=== PATIENT | male | born 1950 | race Caucasian/White ===

== ENCOUNTER 2024-01-20 17:59 | Observation (INO) ==
--- NOTE | 2024-01-20 18:06 | ED Triage Note ---
Date of Service January 20, 2024 Provider in Triage Author: Jeffrey Walters History of Present Illness This patient was briefly evaluated while in triage. An abbreviated physical exam was performed. This patient is a 73-year-old Male who presents to the ED for evaluation seen overnight for weakness, diagnosed with "pneumonia and rhinovirus" sent by "cancer doctors to be admitted for IV antibiotics" Physical Exam GENERAL: NAD CARDIOVASCULAR: RRR RESPIRATORY: CTA ABDOMEN: BS x 4. Nontender to palpation. Initial orders for labs and / or imaging were placed and patient was placed in the waiting area until a bed is available. Please see further documentation for the full ED course.
[2024-01-20 19:07] LABS: Alanine Aminotransferase 9 U/L (7-52); Albumin Globulin Ratio 1.5 (0.9-2); Albumin Level 3.7 gm/dl (3.4-5.0); Alkaline Phosphatase 94 U/L (34-104); BUN Creatinine Ratio 13.9 (10-20); Bilirubin,Total 0.5 mg/dl (0.2-1.0); Blood Urea Nitrogen 11 mg/dl (6-23); Calcium 8.1 mg/dl (8.6-10.3); Carbon Dioxide 24 mmol/L (21-32); Chloride 103 mmol/L (98-107); Globulin 2.5 gm/dl (2.5-4.0); Glucose 106 mg/dl (70-99(Fasting)); Total Protein 6.2 gm/dl (6.0-8.3)
[2024-01-20 19:14] LABS: ALC (manual) 0.94 K/uL (1.2-3.4); ANC (manual) 7.59 K/uL (1.4-6.5); Basophils # (manual) 0.09 K/uL (0-0.2); Basophils % (manual) 1 %; Dohle Bodies 1+; Hematocrit (blood only) 30.7 % (42.0-52.0); Hemoglobin 10.2 g/dl (14.0-18.0); Lymphocytes # (manual) 0.94 K/uL (1.2-3.4); Lymphocytes % (manual) 10 %; Mean Corpuscular Hemoglobin 32.7 pg (25.0-34.0); Mean Corpuscular Hgb Conc 33.2 g/dL (32.0-36.0); Mean Corpuscular Volume 98.4 fL (80.0-100.0); Monocytes # (manual) 0.66 K/uL (0.11-0.59); Monocytes % (manual) 7 %; Myelocytes # (manual) 0.09 K/uL (0-0); Myelocytes % (manual) 1 %; Neutrophils # (manual) 7.59 K/uL (1.40-6.50); Neutrophils % (manual) 81 %; Nucleated RBC # (auto) 0.02 K/uL (0.00-0.12); Nucleated RBC % (auto) 0.2 %; Platelet Count 101 K/uL (130-400); RDW Coefficient of Variation 13.5 % (11.5-14.5); RDW Standard Deviation 48.8 fL (36.4-46.3); Red Blood Count 3.12 M/uL (4.70-6.10); Toxic Granulation 2+; Toxic Vacuolation 2+; White Blood Count 9.37 K/ul (4.8-10.8)
[2024-01-20 19:57] LABS: Appearance Urine Clear (Clear); Bacteria Urine Automated None Seen (None Seen); Bilirubin Urine Negative (Negative); Blood Urine Negative (Negative); Cast Urine Automated 0-2 /lpf (0-2); Color Urine Yellow; Epithelial Cell Urine Auto 0-2 /hpf (0-2); Glucose Urine UA Negative (Negative); Ketones Urine 1+ (Negative); Leukocyte Esterase Urine Negative (Negative); Nitrite Urine Negative (Negative); Protein Urine Trace (Negative); RBC Urine Automated 0-2 /hpf (0-2); Specific Gravity Urine 1.018 (1.000-1.030); Urobilinogen Urine Negative (Negative); WBC Urine Automated 0-5 /hpf (0-5); pH Urine 6.5 (4.5-7.5)
--- NOTE | 2024-01-20 20:12 | XRay Report ---
EXAM: XR chest 2V PA/lateral CLINICAL HISTORY: DYSPNEA HKS/KFK TECHNIQUE: X-ray images of the chest were obtained in posteroanterior (PA) and lateral projections. COMPARISON: Prior PET CT dated 12/25/2023 was reviewed. FINDINGS: Pulmonary Parenchyma: Prominent bilateral broncho vascular markings. No evidence of consolidation, collapse, or focal opacities. No pulmonary nodules were identified. No evidence of pleural effusion or pleural thickening. Heart and Mediastinum: Heart size and shape are normal. No mediastinal widening or masses. No hilar or mediastinal lymphadenopathy. Bony Thorax: Multiple sclerotic osseous lesions are seen at the dorsal spine. Soft Tissues: Soft tissues overlying the chest wall are unremarkable. IMPRESSION: 1. Prominent bilateral broncho vascular markings. likely congestion. 2. Multiple sclerotic osseous lesions are seen at the dorsal spine. likely metastatic. Further, workup is advised. Electronically signed by Shayla Perry 01-20-2024 8:12 PM
[2024-01-20] MEDS: DOXYCYCLINE HYCLATE 100 MG in DEXTROSE 5% MINI-B 100 ML IV STA (21:08)
[2024-01-20 21:38] LABS: Magnesium 1.7 mg/dl (1.7-2.4); Potassium 3.4 mmol/L (3.5-5.1)
--- NOTE | 2024-01-20 21:43 | Emergency Department Note ---
Impression & Plan Acute dehydration, Pneumonia, Rhinovirus infection ED Provider Note HISTORY OF PRESENT ILLNESS: Patient is a 73-year-old male presenting with poor oral intake. Patient reports he has not been feeling well for the last few days. He was seen here yesterday and diagnosed with rhinovirus and pneumonia. He was recommended to be admitted but the patient declined. He reports that his cancer doctor recommended he represent to the emergency department for IV antibiotics and IV fluids and admission. Patient is currently undergoing cancer treatment and last received chemo 1 week ago. Denies any fevers. Reports feeling nauseous and not really having much of an appetite. Denies any dysuria or hematuria. Denies any abdominal pain. Denies any chest pain or significant shortness of breath. He reports a chronic cough. ROS: as above PHYSICAL EXAM: Constitutional: Patient appears in no acute distress. HENT: Head: Normocephalic and atraumatic. Eyes: EOMI, PERRL Mouth/Throat: Mucous membranes dry. Neck: Trachea midline. Neck supple. Cardiovascular: RRR, No murmurs, rubs or gallops. Intact distal pulses. Pulmonary/Chest: No respiratory distress. Breath sounds clear and equal bilaterally. No wheezes or rales. No chest wall tenderness to palpation. Abdominal: Abdomen soft, no tenderness, rebound or guarding. Musculoskeletal: No edema, tenderness or deformity noted. Skin: Warm and dry. No rash, erythema, pallor or cyanosis Psychiatric: Appropriate mood and affect for situation. Neurological: Alert and keenly responsive. CN II-XII grossly intact, moving all extremities equally and fully. MDM: - Vitals signs stable - History obtained via patient. History as above. - Chronic conditions affecting care: prostate cancer with bone metastases; CAD; HLD - Differential diagnoses include, but are not limited to: dehydration; electrolyte abnormality; ACS; pneumonia; UTI; viral syndrome - Order placed for continuous cardiac monitoring. At this time, monitor showed rate of 87 bpm with normal sinus rhythm, per my interpretation. - External medical records reviewed. Workup from yesterday's ER visit was reviewed. Patient's viral respiratory panel was positive for rhinovirus/enterovirus infection. His chest x-ray was read as concern for potential pneumonia. - EKG interpreted by myself showed normal sinus rhythm. Rate 88 bpm. QT 380. No acute ischemic changes. - Laboratory workup interpreted by myself showed normal WBC; hypokalemia (K 3.4); normal magnesium; normal lactate - CXR negative for pneumonia, per my interpretation - UA negative for infection. Noted to have some ketonuria. - Patient reportedly has not been tolerating oral intake very well. Blood cultures were obtained. - Discussion was had with pillowcase cutter about patient's case and need for admission - Hospitalist, Dr. Ca, consulted for admission - Patient admitted to [facility] for further evaluation and management. ASSESSMENT AND PLAN: Diagnosis: pneumonia; rhinovirus; acute dehydration Plan: admit Past Med/Surg History Problem List (Updated 01/20/24 @ 21:44 by Gerri Mata MD) Rhinovirus infection (Acute) Pneumonia (Acute) Acute dehydration (Acute) Hypomagnesemia (Acute) Pancytopenia (Acute) Fall (Acute) Head injury (Acute) Generalized weakness (Acute) Pneumonia (Acute) Lower urinary tract symptoms (LUTS) GARVIN (dyspnea on exertion) Neoplasm of prostate, distant metastasis staging category M1b: metastasis to bone (Chronic) Fatigue SVT (supraventricular tachycardia) (Acute) Weakness (Acute) Dizziness (Acute) Carotid artery, internal, occlusion (Acute) Ureterolithiasis Scrotal pain Prostate cancer Urinary frequency Dyslipidemia Premature supraventricular beats Arrhythmia Concern for a.fib during preop evaluation prior to planned EGD/colonoscopy 06/2022 at [facility]. Subsequently seen by OR cardio 07/05/22, low suspicion for a. fib > 14 playground monitor recommended/noted no evidence of a. fib Encounter for pre-operative examination Lumbar spondylosis Globus sensation Change in bowel habits Depression History of back surgery L2-5 fusion Atherosclerosis of arteries Nocturia Eczema Diarrhea Constipation Dysphagia Medical History GARVIN (dyspnea on exertion) Depression Hx of cardiac arrhythmia Concern for a.fib during preop evaluation prior to planned EGD/colonoscopy 06/2022 at [facility]. Subsequently seen by OR cardio 07/05/22, low suspicion for a. fib > 14 playground monitor recommended/noted no evidence of a. fib Occasional tremors COPD (chronic obstructive pulmonary disease) Occlusion of right internal carotid artery HTN (hypertension) Anxiety Acid reflux Seasonal allergies Kidney stone hx Poor historian Prostate cancer metastatic to bone 05/2022 prostate- oral denies any radiation/chemo Osteoarthritis Chronic back pain Spinal stenosis Globus sensation Pt denies Surgical History History of lumbar fusion H/O cardiac radiofrequency ablation For SVT on 12/11/22 - Follows [facility] H/O cystoscopy Cystoscopy, Left Ureteronephroscopy, Laser destruction, Basket Extraction of the Stone, Insertion Stent Catheter History of colonoscopy History of appendectomy Family History Sister Medical history unknown Pt had 8 sisters - 1 in MVA and 7 still living - none with cancer Mother , in her 80s Dementia Diabetes Myocardial infarction Hypertension Father , in his 80s Cancer Pt uncertain of type Brother No problems noted. Brother No problems noted. Brother No problems noted. Brother No problems noted. Brother No problems noted. Son No problems noted. Son No problems noted. Son No problems noted. Son No problems noted. Denies family history of Crohn's disease Colorectal cancer Ulcerative colitis Social History Smoking Status: Never smoker Tobacco Type: Cigarettes Age Started Using Tobacco: 19; Age Quit Using Tobacco: 55; Cigarettes Per Day: 2 PPD when smoking; Second Hand Exposure: No; Do You Dip or Chew Tobacco: No; Hx Alcohol Use: No Hx Substance Use: No Preferred Language: Turkish Communication Ability: Effective Visual Impairment: No Limitations Hearing Ability: Normal Space Engineer Required: No Beliefs That Will Affect Care: None marital status: Current Living Situation: Spouse current occupational status: retired 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 How many Children do You have: 4 Feels Safe at Home: Yes Diet: regular caffeine: Yes (1 "big cup" per day) during the past year weight has: remained stable Assistive Devices: Glasses Allergies Allergies Allergy/AdvReac Type Severity Reaction Status Date / Time No Known Allergies Allergy Verified 11/29/23 08:04 Home Meds Home Medications Medication Instructions Recorded Confirmed ascorbic acid (vitamin C) 1,000 mg 1 g PO BID 12/10/22 01/20/24 tablet (Vitamin C) atorvastatin 40 mg tablet 40 mg PO QPM 12/10/22 01/20/24 budesonide 160 mcg-glycopyr 9 2 inh inhalation DAILY 12/10/22 01/20/24 mcg-formot 4.8 mcg/actuation HFA inhaler (Breztri Aerosphere) bupropion HCl 300 mg 24 hr tablet, 300 mg PO QAM 12/10/22 01/20/24 extended release (Wellbutrin XL) calcium carbonate 600 mg PO QAM 12/10/22 01/20/24 fexofenadine 180 mg tablet 180 mg PO DAILY PRN Allergic 12/10/22 01/20/24 Symptoms multivitamin 1 tab PO QAM 12/10/22 01/20/24 omeprazole 40 mg capsule,delayed 40 mg PO QAM 12/10/22 01/20/24 release potassium 99 mg tablet 99 mg PO QAM 12/10/22 01/20/24 propranolol 20 mg tablet 20 mg PO BID 12/10/22 01/20/24 terazosin 10 mg capsule 10 mg PO HS 12/10/22 01/20/24 acetaminophen 325 mg capsule 650 mg PO Q8H PRN Pain 03/19/23 01/20/24 (Tylenol) cholecalciferol (vitamin D3) 25 25 mcg PO QAM 03/19/23 01/20/24 mcg (1,000 unit) capsule clotrimazole-betamethasone 1 1 applic topical DAILY PRN Rash 03/19/23 01/20/24 %-0.05 % topical cream cyanocobalamin (vitamin B-12) 2,000 mcg PO DAILY 03/19/23 01/20/24 1,000 mcg capsule enzalutamide 40 mg capsule (Xtandi) 160 mg PO QAM 03/19/23 01/20/24 hydroxyzine HCl 25 mg tablet 50 mg PO HS 03/19/23 01/20/24 leuprolide (3 month) 22.5 mg (3 22.5 mg IM .Q3 months 03/19/23 01/20/24 month) intramuscular syringe kit (Lupron Depot) magnesium 250 mg tablet 250 mg PO HS 03/19/23 01/20/24 nystatin 100,000 unit/gram topical 1 applic topical BID PRN Itchiness 03/19/23 01/20/24 powder furosemide 20 mg tablet (Lasix) 20 mg PO QAM 05/21/23 01/20/24 sertraline 100 mg tablet (Zoloft) 100 mg PO QPM 07/02/23 01/20/24 Complete Prostate Health 1 tab PO QAM 11/29/23 01/20/24 oxycodone 5 mg capsule 5 mg PO QID PRN Pain 11/29/23 01/20/24 tamsulosin 0.4 mg capsule (Flomax) 0.4 mg PO QAM 11/29/23 01/20/24 Previous Rx's Medication Instructions Recorded peg 3350-sod [id number] See Rx Instructions PO .COMPLEX #2 01/13/24 178.7-7.3-0.5-1.12-0.9 gram oral mL soln (Suflave) cefdinir 300 mg capsule 300 mg PO BID 10 days #20 caps 01/19/24 doxycycline hyclate 100 mg tablet 100 mg PO BID 10 days #20 tabs 01/19/24 Results & Data (ED) Vital Signs Vital Signs - 24 hr 01/20/24 18:00 01/20/24 20:09 01/20/24 20:13 Temperature 36.6 C Temperature Source Temporal Artery Scan Pulse Rate 89 90 Pulse Rate [Apical] 87 Respiratory Rate 18 22 Respiratory Effort / Characteristics Respiratory Depth Respiratory Pattern Blood Pressure 105/62 Blood Pressure [Right Arm] 143/81 H Blood Pressure Mean 76 Blood Pressure Mean [Right Arm] 101 Pulse Oximetry 96 99 Oxygen Delivery Method Room Air Sepsis Recent Fever Within 48 Hours No Sepsis New/Unexplained Change in Mental Status N/A Sepsis Action Taken by Nursing No Action Required 01/20/24 21:06 Temperature Temperature Source Pulse Rate Pulse Rate [Apical] 87 Respiratory Rate 20 Respiratory Effort / Characteristics Non-Labored Spontaneous Respiratory Depth Normal Respiratory Pattern Regular Blood Pressure Blood Pressure [Right Arm] 122/89 Blood Pressure Mean Blood Pressure Mean [Right Arm] 100 Pulse Oximetry 98 Oxygen Delivery Method Room Air Sepsis Recent Fever Within 48 Hours Sepsis New/Unexplained Change in Mental Status Sepsis Action Taken by Nursing Laboratory Data 01/20/24 18:18 01/20/24 20:48 Lab Results 01/20/24 01/20/24 01/20/24 Range/Units 18:18 19:40 20:44 WBC 9.37 (4.8-10.8) K/ul RBC 3.12 L (4.70-6.10) M/uL Hgb 10.2 L (14.0-18.0) g/dl Hct 30.7 L (42.0-52.0) % MCV 98.4 (80.0-100.0) fL MCH 32.7 (25.0-34.0) pg MCHC 33.2 (32.0-36.0) g/dL RDW Std Deviation 48.8 H (36.4-46.3) fL RDW Coeff of Rosa 13.5 (11.5-14.5) % Plt Count 101 L (130-400) K/uL MPV 10.0 (9.4-12.4) fL Absolute Nucleated RBC 0.02 (0.00-0.12) K/uL Nucleated RBC % (auto) 0.2 % Neutrophils % (Manual) 81 % Lymphocytes % (Manual) 10 % Monocytes % (Manual) 7 % Basophils % (Manual) 1 % Myelocytes % (Man) 1 % Neutrophils # (Manual) 7.59 H (1.40-6.50) K/uL Total Absolute Neuts 7.59 H (1.4-6.5) K/uL Lymphocytes # (Manual) 0.94 L (1.2-3.4) K/uL Total Abs Lymphocytes 0.94 L (1.2-3.4) K/uL Monocytes # (Manual) 0.66 H (0.11-0.59) K/uL Basophils # (Manual) 0.09 (0-0.2) K/uL Myelocytes # (Manual) 0.09 H (0-0) K/uL Toxic Granulation 2+ Toxic Vacuolation 2+ Dohle Bodies 1+ Sodium TNP Potassium TNP Chloride 103 (98-107) mmol/L Carbon Dioxide 24 (21-32) mmol/L Anion Gap TNP BUN 11 (6-23) mg/dl Creatinine 0.79 (0.6-1.4) mg/dl Est Cr Clr Drug Dosing Not Reportable eGFR 92.64 BUN/Creatinine Ratio 13.9 (10-20) Glucose 106 H (70-99(Fasting)) mg/dl Lactate 1.3 (0.4-2.0) mmol/L Calcium 8.1 L (8.6-10.3) mg/dl Magnesium TNP Total Bilirubin 0.5 (0.2-1.0) mg/dl AST TNP ALT 9 (7-52) U/L Alkaline Phosphatase 94 (34-104) U/L Total Protein 6.2 (6.0-8.3) gm/dl Albumin 3.7 (3.4-5.0) gm/dl Globulin 2.5 (2.5-4.0) gm/dl Albumin/Globulin Ratio 1.5 (0.9-2) Urine Color Yellow Urine Appearance Clear (Clear) Urine pH 6.5 (4.5-7.5) Ur Specific [place] 1.018 (1.000-1.030) Urine Protein Trace H (Negative) Urine Glucose (UA) Negative (Negative) Urine Ketones 1+ H (Negative) Urine Blood Negative (Negative) Urine Nitrite Negative (Negative) Urine Bilirubin Negative (Negative) Urine Urobilinogen Negative (Negative) Ur Leukocyte Esterase Negative (Negative) Urine WBC (Auto) 0-5 (0-5) /hpf Urine RBC (Auto) 0-2 (0-2) /hpf U Hyaline Cast (Auto) 0-2 (0-2) /lpf U Epithel Cells (Auto) 0-2 (0-2) /hpf Urine Bacteria (Auto) None Seen (None Seen) 01/20/24 Range/Units 20:48 WBC (4.8-10.8) K/ul RBC (4.70-6.10) M/uL Hgb (14.0-18.0) g/dl Hct (42.0-52.0) % MCV (80.0-100.0) fL MCH (25.0-34.0) pg MCHC (32.0-36.0) g/dL RDW Std Deviation (36.4-46.3) fL RDW Coeff of Rosa (11.5-14.5) % Plt Count (130-400) K/uL MPV (9.4-12.4) fL Absolute Nucleated RBC (0.00-0.12) K/uL Nucleated RBC % (auto) % Neutrophils % (Manual) % Lymphocytes % (Manual) % Monocytes % (Manual) % Basophils % (Manual) % Myelocytes % (Man) % Neutrophils # (Manual) (1.40-6.50) K/uL Total Absolute Neuts (1.4-6.5) K/uL Lymphocytes # (Manual) (1.2-3.4) K/uL Total Abs Lymphocytes (1.2-3.4) K/uL Monocytes # (Manual) (0.11-0.59) K/uL Basophils # (Manual) (0-0.2) K/uL Myelocytes # (Manual) (0-0) K/uL Toxic Granulation Toxic Vacuolation Dohle Bodies Sodium 137 Potassium 3.4 L Chloride (98-107) mmol/L Carbon Dioxide (21-32) mmol/L Anion Gap BUN (6-23) mg/dl Creatinine (0.6-1.4) mg/dl Est Cr Clr Drug Dosing eGFR BUN/Creatinine Ratio (10-20) Glucose (70-99(Fasting)) mg/dl Lactate (0.4-2.0) mmol/L Calcium (8.6-10.3) mg/dl Magnesium 1.7 Total Bilirubin (0.2-1.0) mg/dl AST 22 ALT (7-52) U/L Alkaline Phosphatase (34-104) U/L Total Protein (6.0-8.3) gm/dl Albumin (3.4-5.0) gm/dl Globulin (2.5-4.0) gm/dl Albumin/Globulin Ratio (0.9-2) Urine Color Urine Appearance (Clear) Urine pH (4.5-7.5) Ur Specific [place] (1.000-1.030) Urine Protein (Negative) Urine Glucose (UA) (Negative) Urine Ketones (Negative) Urine Blood (Negative) Urine Nitrite (Negative) Urine Bilirubin (Negative) Urine Urobilinogen (Negative) Ur Leukocyte Esterase (Negative) Urine WBC (Auto) (0-5) /hpf Urine RBC (Auto) (0-2) /hpf U Hyaline Cast (Auto) (0-2) /lpf U Epithel Cells (Auto) (0-2) /hpf Urine Bacteria (Auto) (None Seen) Administered Medications Doxycycline Hyclate 100 mg/ (Dextrose) 100 mls @ 50 mls/hr IV NOW STA Stop: 01/20/24 22:26 Last Admin: 01/20/24 21:08 Dose: 50 mls/hr Documented By: [facility] Imaging Data Radiologist's Impression: Chest X-Ray 01/20/24 18:06 EXAM: XR chest 2V PA/lateral CLINICAL HISTORY: DYSPNEA HKS/KFK TECHNIQUE: X-ray images of the chest were obtained in posteroanterior (PA) and lateral projections. COMPARISON: Prior PET CT dated 12/25/2023 was reviewed. FINDINGS: Pulmonary Parenchyma: Prominent bilateral broncho vascular markings. No evidence of consolidation, collapse, or focal opacities. No pulmonary nodules were identified. No evidence of pleural effusion or pleural thickening. Heart and Mediastinum: Heart size and shape are normal. No mediastinal widening or masses. No hilar or mediastinal lymphadenopathy. Bony Thorax: Multiple sclerotic osseous lesions are seen at the dorsal spine. Soft Tissues: Soft tissues overlying the chest wall are unremarkable. IMPRESSION: 1. Prominent bilateral broncho vascular markings. likely congestion. 2. Multiple sclerotic osseous lesions are seen at the dorsal spine. likely metastatic. Further, workup is advised. Electronically signed by Shayla Perry 01-20-2024 8:12 PM Discharge Plan Visit Data Chief Complaint: Illness Stated Complaint: IV ANTI BIOTICS, RHINO FLUIDS, NO EATING AND DRINK ED Provider: Gerri Mata Discharge Problem: Acute dehydration, Pneumonia, Rhinovirus infection Forms Stand Alone Forms: My [facility] Prescriptions Prescriptions: No Action furosemide [Lasix] 20 mg tablet 20 mg PO QAM clotrimazole-betamethasone 1-0.05 % cream 1 applic topical DAILY PRN (Reason: Rash) hydroxyzine HCl 25 mg tablet 50 mg PO HS nystatin 100,000 unit/gram powder 1 applic topical BID PRN (Reason: Itchiness) acetaminophen [Tylenol] 325 mg capsule 650 mg PO Q8H PRN (Reason: Pain) cholecalciferol (vitamin D3) 25 mcg (1,000 unit) capsule 25 mcg PO QAM magnesium 250 mg tablet 250 mg PO HS Lupron Depot (3 month) 22.5 mg syringe kit 22.5 mg IM .Q3 months Patient Comments: "I think injection is 12/25/23" Suflave 178.7-7.3-0.5 gram recon soln See Rx Instructions PO .COMPLEX Qty: 2 0RF Rx Instructions: orally; TAKE FIRST DOSE AT 6 PM AND SECOND DOSE 6 HOURS PRIOR TO PROCEDURE BIN: [id number] N: 2000 GROUP: [id number] sertraline [Zoloft] 100 mg tablet 100 mg PO QPM atorvastatin 40 mg tablet 40 mg PO QPM omeprazole 40 mg capsule,delayed release(DR/EC) 40 mg PO QAM propranolol 20 mg tablet 20 mg PO BID terazosin 10 mg capsule 10 mg PO HS bupropion HCl [Wellbutrin XL] 300 mg tablet extended release 24 hr 300 mg PO QAM Breztri Aerosphere 160-9-4.8 mcg/actuation HFA aerosol inhaler 2 inh INHALATION DAILY multivitamin Tablet 1 tab PO QAM ascorbic acid (vitamin C) [Vitamin C] 1,000 mg Tablet 1 g PO BID fexofenadine 180 mg Tablet 180 mg PO DAILY PRN (Reason: Allergic Symptoms) calcium carbonate 600 mg calcium (1,500 mg) Tablet 600 mg PO QAM potassium 99 mg Tablet 99 mg PO QAM Xtandi 40 mg capsule 160 mg PO QAM cyanocobalamin (vitamin B-12) 1,000 mcg capsule 2,000 mcg PO DAILY Complete Prostate Health 1 tab PO QAM tamsulosin [Flomax] 0.4 mg capsule 0.4 mg PO QAM oxycodone 5 mg capsule 5 mg PO QID PRN (Reason: Pain) doxycycline hyclate 100 mg tablet 100 mg PO BID 10 Days Qty: 20 0RF cefdinir 300 mg capsule 300 mg PO BID 10 Days Qty: 20 0RF Referrals Referrals: PCP,NO [Primary Care Provider] -
--- NOTE | 2024-01-20 22:14 | History & Physical Report ---
Date of Service January 20, 2024 Assessment & Plan (1) SOB (shortness of breath): Plan: Secondary to complicated bronchitis Superimposed on entero/rhinovirus infection Immunocompromised patient, hx metastatic prostate cancer status post radiation on chemotherapy No consolidation on CT imaging No sepsis for now Some improvement after initial outpatient dose of the cefdinir and doxycycline Rx following ER visit yesterday. PSVT status post ablation valvular heart disease (mild MR, moderate TR) PVD hypertension, stable hyperlipidemia, on statin Rx BPH, on Flomax Acute on chronic anemia possibly from chemotherapy, no overt bleed, FOBT done at there was negative New onset thrombocytopenia possibly from chemotherapy Ambulate dysfunction, recurrent falls past tobacco abuse OBS Medical telemetry Doxycycline Anemia workup, transfuse PRBC if hemoglobin less than 8 (hx PVD) and or for symptomatic anemia PT OT eval DVT prophylaxis. SCDs re: thrombocytopenia Full code Text document was generated using [employer] voice recognition software. It may contain grammatical or spelling errors. Kindly contact undersigned for clarification of any documentation item in question. History of Present Illness Chief Complaint: Cough, pneumonia Primary Care Provider: NO PCP History obtained from patient, family, and records. Medical history significant for PSVT status post ablation, valvular heart disease (mild MR, moderate TR), PVD, hypertension, hyperlipidemia, metastatic prostate cancer status post radiation on Lupron and chemotherapy, BPH, GERD, chronic anemia (baseline hemoglobin 11-12), past tobacco abuse. Last confinement December 2022 for SVT status post ablation. Few days history of generalized weakness low-grade fever and junky cough symptoms. Sick granddaughter at home. Achy chest pain with cough symptoms. Denies hemoptysis. Denies aspiration. No headache, no abdominal pain, no black/bloody stools, no hematuria. Patient seen at [facility] ER yesterday. Entero-/rhinovirus swab positive. Chest x-ray showed mild cardiomegaly with pulmonary vascular congestion. Edema versus pneumonia. Admission recommended but patient declined. Patient sent home on cefdinir and doxycycline Rx. Symptoms improved but patient sent back to ER by oncologist after appointment today. 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 Allergies Allergy/AdvReac Type Severity Reaction Status Date / Time No Known Allergies Allergy Verified 11/29/23 08:04 Home Medications Medication Instructions Recorded Confirmed Type ascorbic acid (vitamin C) 1,000 mg 1 g PO BID 12/10/22 01/20/24 History tablet (Vitamin C) atorvastatin 40 mg tablet 40 mg PO QPM 12/10/22 01/20/24 History budesonide 160 mcg-glycopyr 9 2 inh inhalation DAILY 12/10/22 01/20/24 History mcg-formot 4.8 mcg/actuation HFA inhaler (Breztri Aerosphere) bupropion HCl 300 mg 24 hr tablet, 300 mg PO QAM 12/10/22 01/20/24 History extended release (Wellbutrin XL) calcium carbonate 600 mg PO QAM 12/10/22 01/20/24 History fexofenadine 180 mg tablet 180 mg PO DAILY PRN Allergic 12/10/22 01/20/24 History Symptoms multivitamin 1 tab PO QAM 12/10/22 01/20/24 History omeprazole 40 mg capsule,delayed 40 mg PO QAM 12/10/22 01/20/24 History release potassium 99 mg tablet 99 mg PO QAM 12/10/22 01/20/24 History propranolol 20 mg tablet 20 mg PO BID 12/10/22 01/20/24 History terazosin 10 mg capsule 10 mg PO HS 12/10/22 01/20/24 History acetaminophen 325 mg capsule 650 mg PO Q8H PRN Pain 03/19/23 01/20/24 History (Tylenol) cholecalciferol (vitamin D3) 25 25 mcg PO QAM 03/19/23 01/20/24 History mcg (1,000 unit) capsule clotrimazole-betamethasone 1 1 applic topical DAILY PRN Rash 03/19/23 01/20/24 History %-0.05 % topical cream cyanocobalamin (vitamin B-12) 2,000 mcg PO DAILY 03/19/23 01/20/24 History 1,000 mcg capsule enzalutamide 40 mg capsule (Xtandi) 160 mg PO QAM 03/19/23 01/20/24 History hydroxyzine HCl 25 mg tablet 50 mg PO HS 03/19/23 01/20/24 History leuprolide (3 month) 22.5 mg (3 22.5 mg IM .Q3 months 03/19/23 01/20/24 History month) intramuscular syringe kit (Lupron Depot) magnesium 250 mg tablet 250 mg PO HS 03/19/23 01/20/24 History nystatin 100,000 unit/gram topical 1 applic topical BID PRN Itchiness 03/19/23 01/20/24 History powder furosemide 20 mg tablet (Lasix) 20 mg PO QAM 05/21/23 01/20/24 History sertraline 100 mg tablet (Zoloft) 100 mg PO QPM 07/02/23 01/20/24 History Complete Prostate Health 1 tab PO QAM 11/29/23 01/20/24 History oxycodone 5 mg capsule 5 mg PO QID PRN Pain 11/29/23 01/20/24 History tamsulosin 0.4 mg capsule (Flomax) 0.4 mg PO QAM 11/29/23 01/20/24 History peg 3350-sod sulf,[id number] See Rx Instructions PO .COMPLEX #2 01/13/24 01/20/24 Rx 178.7-7.3-0.5-1.12-0.9 gram oral mL soln (Suflave) cefdinir 300 mg capsule 300 mg PO BID 10 days #20 caps 01/19/24 01/20/24 Rx doxycycline hyclate 100 mg tablet 100 mg PO BID 10 days #20 tabs 01/19/24 01/20/24 Rx Past Med/Surg History Problem List (Updated 01/21/24 @ 07:17 by Glenn Ca MD) SOB (shortness of breath) Rhinovirus infection (Acute) Pneumonia (Acute) Acute dehydration (Acute) Hypomagnesemia (Acute) Pancytopenia (Acute) Fall (Acute) Head injury (Acute) Generalized weakness (Acute) Pneumonia (Acute) Lower urinary tract symptoms (LUTS) GARVIN (dyspnea on exertion) Neoplasm of prostate, distant metastasis staging category M1b: metastasis to bone (Chronic) Fatigue SVT (supraventricular tachycardia) (Acute) Weakness (Acute) Dizziness (Acute) Carotid artery, internal, occlusion (Acute) Ureterolithiasis Scrotal pain Prostate cancer Urinary frequency Dyslipidemia Premature supraventricular beats Arrhythmia Concern for a.fib during preop evaluation prior to planned EGD/colonoscopy 06/[address] [facility]. Subsequently seen by [place] [facility] 07/05/22, low suspicion for a. 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 fib Encounter for pre-operative examination Lumbar spondylosis Globus sensation Change in bowel habits Depression History of back surgery L2-5 fusion Atherosclerosis of arteries Nocturia Eczema Diarrhea Constipation Dysphagia Medical History GARVIN (dyspnea on exertion) Depression Hx of cardiac arrhythmia Concern for a.fib during preop evaluation prior to planned EGD/colonoscopy 06/[address] [facility]. Subsequently seen by [place] [facility] 07/05/22, low suspicion for a. 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 fib Occasional tremors COPD (chronic obstructive pulmonary disease) Occlusion of right internal carotid artery HTN (hypertension) Anxiety Acid reflux Seasonal allergies Kidney stone hx Poor historian Prostate cancer metastatic to bone 05/2022 prostate- oral denies any radiation/chemo Osteoarthritis Chronic back pain Spinal stenosis Globus sensation Pt denies Surgical History History of lumbar fusion H/O cardiac radiofrequency ablation For SVT on 12/11/22 - Follows [facility] [place] [facility] H/O cystoscopy Cystoscopy, Left Ureteronephroscopy, Laser destruction, Basket Extraction of the Stone, Insertion Stent Catheter History of colonoscopy History of appendectomy Family History Sister Medical history unknown Pt had 8 sisters - 1 in MVA and 7 still living - none with cancer Mother , in her 80s Dementia Diabetes Myocardial infarction Hypertension Father , in his 80s Cancer Pt uncertain of type Brother No problems noted. Brother No problems noted. Brother No problems noted. Brother No problems noted. Brother No problems noted. Son No problems noted. Son No problems noted. Son No problems noted. Son No problems noted. Denies family history of Crohn's disease Colorectal cancer Ulcerative colitis Social History Smoking Status: Former smoker Tobacco Type: Cigarettes Age Started Using Tobacco: 19; Age Quit Using Tobacco: 55; Cigarettes Per Day: 2 PPD when smoking; Second Hand Exposure: No; Do You Dip or Chew Tobacco: No; Hx Alcohol Use: No Hx Substance Use: No Preferred Language: [place] Communication Ability: Effective Visual Impairment: No Limitations Hearing Ability: Normal Dairy Specialist Required: No Beliefs That Will Affect Care: None marital status: Current Living Situation: Spouse current occupational status: 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 How many Children do You have: 4 Feels Safe at Home: Yes Safety Concerns: Feels Safe At This Time Diet: regular caffeine: Yes (1 "big cup" per day) during the past year weight has: remained stable Assistive Devices: Glasses Review of Systems Review of Systems: As per HPI, all other systems reviewed and negative Physical Exam Physical Exam: GENERAL: Comfortable, pleasant, slightly hard of hearing, no respiratory distress SKIN: pallor, warm HEENT: Pale palpebral conjunctivae, no ptosis, dry buccal mucosa NECK : Supple, no tenderness CHEST : Decreased breath sounds, no tenderness HEART : RRR, no obvious murmurs ABDOMEN: Some distention, nontender RECTAL : Intact sphincter, brown stool (FOBT negative) EXTREMITIES : No LE swelling/tenderness, no other conspicuous deformities noted NEUROLOGIC : Coherent, no facial asymmetry, slightly hard of hearing, no other gross focality Results & Data Results & Data Vital Signs (Past 12 Hours) Vital Signs Temp Pulse Pulse Resp BP BP Pulse Ox 01/20/24 21:06 87 20 122/89 98 01/20/24 20:13 90 01/20/24 20:09 87 22 143/81 H 99 01/20/24 18:00 36.6 C 89 18 105/62 96 O2 Del Method 01/20/24 21:06 Room Air 01/20/24 20:13 01/20/24 20:09 Room Air 01/20/24 18:00 Laboratory Results Laboratory Results WBC 9.37 K/ul (4.8-10.8) 01/20/24 18:18 RBC 3.12 M/uL (4.70-6.10) L 01/20/24 18:18 Hgb 10.2 g/dl (14.0-18.0) L 01/20/24 18:18 Hct 30.7 % (42.0-52.0) L 01/20/24 18:18 MCV 98.4 fL (80.0-100.0) 01/20/24 18:18 MCH 32.7 pg (25.0-34.0) 01/20/24 18:18 MCHC 33.2 g/dL (32.0-36.0) 01/20/24 18:18 RDW Std Deviation 48.8 fL (36.4-46.3) H 01/20/24 18:18 RDW Coeff of Rosa 13.5 % (11.5-14.5) 01/20/24 18:18 Plt Count 101 K/uL (130-400) L 01/20/24 18:18 MPV 10.0 fL (9.4-12.4) 01/20/24 18:18 Absolute Nucleated RBC 0.02 K/uL (0.00-0.12) 01/20/24 18:18 Nucleated RBC % (auto) 0.2 % 01/20/24 18:18 Neutrophils % (Manual) 81 % 01/20/24 18:18 Lymphocytes % (Manual) 10 % 01/20/24 18:18 Monocytes % (Manual) 7 % 01/20/24 18:18 Basophils % (Manual) 1 % 01/20/24 18:18 Myelocytes % (Man) 1 % 01/20/24 18:18 Neutrophils # (Manual) 7.59 K/uL (1.40-6.50) H 01/20/24 18:18 Total Absolute Neuts 7.59 K/uL (1.4-6.5) H 01/20/24 18:18 Lymphocytes # (Manual) 0.94 K/uL (1.2-3.4) L 01/20/24 18:18 Total Abs Lymphocytes 0.94 K/uL (1.2-3.4) L 01/20/24 18:18 Monocytes # (Manual) 0.66 K/uL (0.11-0.59) H 01/20/24 18:18 Basophils # (Manual) 0.09 K/uL (0-0.2) 01/20/24 18:18 Myelocytes # (Manual) 0.09 K/uL (0-0) H 01/20/24 18:18 Toxic Granulation 2+ 01/20/24 18:18 Toxic Vacuolation 2+ 01/20/24 18:18 Dohle Bodies 1+ 01/20/24 18:18 Sodium 137 mmol/L (136-145) 01/20/24 20:48 Potassium 3.4 mmol/L (3.5-5.1) L 01/20/24 20:48 Chloride 103 mmol/L (98-107) 01/20/24 18:18 Carbon Dioxide 24 mmol/L (21-32) 01/20/24 18:18 Anion Gap TNP 01/20/24 18:18 BUN 11 mg/dl (6-23) 01/20/24 18:18 Creatinine 0.79 mg/dl (0.6-1.4) 01/20/24 18:18 Est Cr Clr Drug Dosing Not Reportable 01/20/24 18:18 eGFR 92.64 01/20/24 18:18 BUN/Creatinine Ratio 13.9 (10-20) 01/20/24 18:18 Glucose 106 mg/dl (70-99(Fasting)) H 01/20/24 18:18 Lactate 1.3 mmol/L (0.4-2.0) 01/20/24 20:44 Calcium 8.1 mg/dl (8.6-10.3) L 01/20/24 18:18 Magnesium 1.7 mg/dl (1.7-2.4) 01/20/24 20:48 Total Bilirubin 0.5 mg/dl (0.2-1.0) 01/20/24 18:18 AST 22 U/L (13-39) 01/20/24 20:48 ALT 9 U/L (7-52) 01/20/24 18:18 Alkaline Phosphatase 94 U/L (34-104) 01/20/24 18:18 Total Protein 6.2 gm/dl (6.0-8.3) 01/20/24 18:18 Albumin 3.7 gm/dl (3.4-5.0) 01/20/24 18:18 Globulin 2.5 gm/dl (2.5-4.0) 01/20/24 18:18 Albumin/Globulin Ratio 1.5 (0.9-2) 01/20/24 18:18 Procalcitonin 0.06 ng/ml (0-0.5) 01/20/24 20:44 Urine Color Yellow 01/20/24 19:40 Urine Appearance Clear (Clear) 01/20/24 19:40 Urine pH 6.5 (4.5-7.5) 01/20/24 19:40 Ur Specific [place] 1.018 (1.000-1.030) 01/20/24 19:40 Urine Protein Trace (Negative) H 01/20/24 19:40 Urine Glucose (UA) Negative (Negative) 01/20/24 19:40 Urine Ketones 1+ (Negative) H 01/20/24 19:40 Urine Blood Negative (Negative) 01/20/24 19:40 Urine Nitrite Negative (Negative) 01/20/24 19:40 Urine Bilirubin Negative (Negative) 01/20/24 19:40 Urine Urobilinogen Negative (Negative) 01/20/24 19:40 Ur Leukocyte Esterase Negative (Negative) 01/20/24 19:40 Urine WBC (Auto) 0-5 /hpf (0-5) 01/20/24 19:40 Urine RBC (Auto) 0-2 /hpf (0-2) 01/20/24 19:40 U Hyaline Cast (Auto) 0-2 /lpf (0-2) 01/20/24 19:40 U Epithel Cells (Auto) 0-2 /hpf (0-2) 01/20/24 19:40 Urine Bacteria (Auto) None Seen (None Seen) 01/20/24 19:40 Impressions Chest X-Ray 01/20/24 18:06 EXAM: XR chest 2V PA/lateral CLINICAL HISTORY: DYSPNEA HKS/KFK TECHNIQUE: X-ray images of the chest were obtained in posteroanterior (PA) and lateral projections. COMPARISON: Prior PET CT dated 12/25/2023 was reviewed. FINDINGS: Pulmonary Parenchyma: Prominent bilateral broncho vascular markings. No evidence of consolidation, collapse, or focal opacities. No pulmonary nodules were identified. No evidence of pleural effusion or pleural thickening. Heart and Mediastinum: Heart size and shape are normal. No mediastinal widening or masses. No hilar or mediastinal lymphadenopathy. Bony Thorax: Multiple sclerotic osseous lesions are seen at the dorsal spine. Soft Tissues: Soft tissues overlying the chest wall are unremarkable. IMPRESSION: 1. Prominent bilateral broncho vascular markings. likely congestion. 2. Multiple sclerotic osseous lesions are seen at the dorsal spine. likely metastatic. Further, workup is advised. Electronically signed by Shayla Perry 01-20-2024 8:12 PM Chest CTA: 1. No evidence of pulmonary embolism 2. Ill-defined sclerotic lesions are seen in the thoracic vertebra and few ribs- likely to suggest metastases 3. Right basal pleural effusion is seen with basal collapse 4. Left basal pleural thickening is seen with atelectatic bands in the lower lobe Diagnostic Findings EKG as per my interpretation : Rate 90, NSR, LAD, LAFB, T wave flattening septal leads
[2024-01-20] MEDS ORDERED: FEXOFENADINE HCL 180 MG TAB PO PRN (22:18)
[2024-01-20] MEDS: MAGNESIUM SULFATE / D5W 1 GM/100 ML BAG IV STA (23:14)
[2024-01-20] MEDS: POTASSIUM CHLORIDE CRTAB 20 MEQ TABCR PO STA (23:14)
[2024-01-21] MEDS: OPTIRAY 320 125ml IV ONE (00:18)
[2024-01-21] MEDS: METOPROLOL TARTRATE 1 MG/ML VIAL IV STA (00:28)
[2024-01-21] MEDS: ALBUMIN 25% 12.5 GM/50 ML VIAL IV STA (00:31)
[2024-01-21] MEDS: PROPRANOLOL HCL 20 MG TAB PO SCH ×2 (00:39→08:27)
--- NOTE | 2024-01-21 01:45 | CT Scan Report ---
EXAM: CT angio chest PE protocol CLINICAL HISTORY: Pt reports was here last night, PCP wants him to be admit for ABX, under going treatment to [place], 77 ml opti 320 PW TECHNIQUE: Contiguous axial images were obtained from the neck base through the upper abdomen following intravenous administration of iodinated contrast material. Angiographic images were processed, 3D MIP images were acquired for interpretation. If IV contrast material had not been administered, the likelihood of detecting abnormalities relevant to the patient's condition would have been substantially decreased. Coronal and sagittal 3-D MIPs were likewise performed and indicated to increase the sensitivity of detectin diffuse clinically relevant pathology. CT scan was performed according to ALARA (as low as reasonable achievable). COMPARISON: - FINDINGS: Adequate contrast bolus without evidence of pulmonary embolism. The central airways are patent. Right basal pleural effusion is seen with basal collapse Left basal pleural thickening is seen with atelectatic bands in the lower lobe The heart, aorta, and pulmonary arteries are of normal size and configuration. There is appreciable coronary artery and aortic atherosclerotic calcifications. No pericardial effusion is identified. The thyroid is unremarkable. No mediastinal, hilar, or axillary lymphadenopathy is noted. Ill-defined sclerotic lesions are seen in the thoracic vertebra and few ribs. Degnerative changes in the visualized spine IMPRESSION: 1. No evidence of pulmonary embolism 2. Ill-defined sclerotic lesions are seen in the thoracic vertebra and few ribs- likely to suggest metastases 3. Right basal pleural effusion is seen with basal collapse 4. Left basal pleural thickening is seen with atelectatic bands in the lower lobe Electronically signed by Soy Rouse 01-21-2024 01:44 AM
[2024-01-21] MEDS: hydrOXYzine HCl 25 MG TAB PO PRN (03:43)
[2024-01-21 05:33] LABS: BUN Creatinine Ratio 12.3 (10-20); Calcium 8.1 mg/dl (8.6-10.3); Creatinine Clr Calc Pharmacy 88.3 ml/min; Potassium 3.5 mmol/L (3.5-5.1)
[2024-01-21 05:49] LABS: Ferritin 1264.4 ng/ml (8-388)
[2024-01-21 05:53] LABS: ALC (manual) 0.36 K/uL (1.2-3.4); ANC (manual) 10.43 K/uL (1.4-6.5); Dohle Bodies 1+; Hematocrit (blood only) 28.3 % (42.0-52.0); Hemoglobin 9.7 g/dl (14.0-18.0); Lymphocytes # (manual) 0.36 K/uL (1.2-3.4); Lymphocytes % (manual) 3 %; Mean Corpuscular Hemoglobin 33.2 pg (25.0-34.0); Mean Corpuscular Hgb Conc 34.3 g/dL (32.0-36.0); Mean Corpuscular Volume 96.9 fL (80.0-100.0); Mean Platelet Volume 10.6 fL (9.4-12.4); Monocytes # (manual) 1.08 K/uL (0.11-0.59); Monocytes % (manual) 9 %; Myelocytes # (manual) 0.12 K/uL (0-0); Myelocytes % (manual) 1 %; Neutrophils # (manual) 10.43 K/uL (1.40-6.50); Neutrophils % (manual) 87 %; Nucleated RBC # (auto) 0.04 K/uL (0.00-0.12); Nucleated RBC % (auto) 0.3 %; Platelet Count 104 K/uL (130-400); Polychromasia 1+; RDW Coefficient of Variation 13.6 % (11.5-14.5); RDW Standard Deviation 48.1 fL (36.4-46.3); Red Blood Count 2.92 M/uL (4.70-6.10); Reticulocyte % 0.76 % (0.50-2.00); White Blood Count 11.99 K/ul (4.8-10.8)
[2024-01-21 06:26] LABS: Folate (Folic Acid),Ser orPlas > 22.30 ng/ml (>5.38)
[2024-01-21 06:27] LABS: Vitamin B12 > 1500 pg/ml (180-914)
[2024-01-21 06:59] LABS: Toxic Granulation 2+
[2024-01-21] MEDS: PANTOprazole 40 MG TAB PO SCH (08:27)
[2024-01-21] MEDS: MULTIVITAMIN TAB PO SCH (08:27)
[2024-01-21] MEDS: TAMSULOSIN HCL 0.4 MG CAP PO SCH (08:27)
[2024-01-21] MEDS: CHOLECALCIFEROL 25 MCG (1000 UNITS) TAB PO SCH (08:28)
[2024-01-21] MEDS: CYANOCOBALAMIN (B-12) 500 MCG TABLET PO SCH (08:28)
[2024-01-21] MEDS: DOXYCYCLINE HYCLATE 100 MG CAP PO SCH (08:28)
[2024-01-21] MEDS: buPROPion XL 300 MG TABCR PO SCH (08:28)
[2024-01-21] MEDS: UMECLIDINIUM/VILANTEROL 62.5/25MCG 7 PUFFS/INHALER INH SCH (08:29)
[2024-01-21] MEDS: FLUTICASONE FUROATE 200MCG 14 PUFFS/INHALER INH SCH (08:29)
[2024-01-21] MEDS ORDERED: NON-FORMULARY MEDICATION (Budesonide-Glycopyr-Formoterol [Breztri Aerosphere] 160-9-4.8 mc INH SCH (09:00)
[2024-01-21] MEDS ORDERED: [UNRECOGNIZED DRUG - OTHER] PO SCH (09:00)
[2024-01-21] MEDS: oxyCODONE HCL IR 5 MG TAB (IMMEDIATE RELEASE) PO PRN (15:02)
[2024-01-21] MEDS ORDERED: COUGH DROP (SUGAR FREE) LOZ 24 LOZ/1 BOX BUCCAL PRN (17:00)
--- NOTE | 2024-01-21 17:04 | Hospitalist Progress Note ---
Date of Service January 21, 2024 Assessment & Plan (1) SOB (shortness of breath): Plan: Mr. Gama is a 73-year-old gentleman with metastatic prostate cancer, PSVT s/p ablation, HTN, PVD, HLD who is admitted for weakness and fever, ultimately found to have entero/rhinon virius as well as bronchitis. #entero/rhinovirus infection #Acute bronchitis On room air, subjective improvement with doxy continue doxycycline at this time continue ctx iv mucinex bid IS symptomatic management Monitor fever curve #PSVT status post ablation 2022 -No signs of recurrence, occasional PVC on monitor monitor on tele continue propranolol BID #HTN #valvular heart disease (mild MR, moderate TR) #PVD #hyperlipidemia continue on statin Rx #Acute on chronic anemia FOBT negative No signs of bleeding, recieved IVF likley iso chronic disease/malignancy trend CBC #Acute thrombocytopenia, likely iso acute illness uptrending since admission, from 89 to 104 CTM #LUTS #Metastatic prostate cancer On Lupron and Xtandi since 06/2021 on monthly xgeva follows urology (Dr. Huggins) and medical oncology (Dr. Corea) continue flomax DVT scds l Admission and Anticipated Discharge Date Admission Date: January 20, 2024 Subjective Reports notable improvement---reduced diarrhea and improved cough States he is able to get up and move more denies any subjective fever, chest pain or other symptoms outside of cough Physical Exam Constitutional: WD/WN, vitals as above Respiratory: diminished bibasila BS , inhalation followed by dry cough Gastrointestinal (Abdomen): normal bowel sounds, soft, nontender, no hepatosplenomegaly Musculoskeletal: no cyanosis or clubbing, extremities motor strength 5/5 Results & Data Results & Data Vital Signs (Past 12 Hours) Vital Signs Temp Pulse Pulse Resp BP BP BP 01/21/24 16:00 36.6 C 79 18 101/60 99/60 L 01/21/24 14:26 01/21/24 14:04 36.9 C 73 18 122/73 01/21/24 13:02 79 23 128/80 01/21/24 07:48 87 18 114/63 01/21/24 07:48 01/21/24 05:00 91 H 23 122/64 Pulse Ox Pulse Ox O2 Del Method O2 Del Method 01/21/24 16:00 96 Room Air 01/21/24 14:26 Room Air 01/21/24 14:04 96 Room Air 01/21/24 13:02 98 Room Air 01/21/24 07:48 98 Room Air 01/21/24 07:48 97 Room Air 01/21/24 05:00 94 Laboratory Results Short CBC 01/20/24 01/21/24 Range/Units 18:18 04:47 WBC 9.37 11.99 H (4.8-10.8) K/ul Hgb 10.2 L 9.7 L (14.0-18.0) g/dl Hct 30.7 L 28.3 L (42.0-52.0) % Plt Count 101 L 104 L (130-400) K/uL BMP 01/20/24 01/20/24 01/21/24 18:18 20:48 04:47 Sodium TNP 137 137 Potassium TNP 3.4 L 3.5 Chloride 103 105 Carbon Dioxide 24 23 BUN 11 10 Creatinine 0.79 0.81 Glucose 106 H 97 Calcium 8.1 L 8.1 L Liver Function 01/20/24 01/20/24 Range/Units 18:18 20:48 Total Bilirubin 0.5 (0.2-1.0) mg/dl AST TNP 22 ALT 9 (7-52) U/L Alkaline Phosphatase 94 (34-104) U/L Albumin 3.7 (3.4-5.0) gm/dl Urine 01/20/24 Range/Units 19:40 Urine Color Yellow Urine Appearance Clear (Clear) Urine pH 6.5 (4.5-7.5) Ur Specific [place] 1.018 (1.000-1.030) Urine Protein Trace H (Negative) Urine Glucose (UA) Negative (Negative) Medications Administered Home Medications Medication Instructions Recorded Confirmed Last Taken ascorbic acid (vitamin C) 1,000 mg 1 g PO BID 12/10/22 01/20/24 Unknown tablet (Vitamin C) atorvastatin 40 mg tablet 40 mg PO QPM 12/10/22 01/20/24 Unknown budesonide 160 mcg-glycopyr 9 2 inh inhalation DAILY 12/10/22 01/20/24 Unknown mcg-formot 4.8 mcg/actuation HFA inhaler (Breztri Aerosphere) bupropion HCl 300 mg 24 hr tablet, 300 mg PO QAM 12/10/22 01/20/24 Unknown extended release (Wellbutrin XL) calcium carbonate 600 mg PO QAM 12/10/22 01/20/24 Unknown fexofenadine 180 mg tablet 180 mg PO DAILY PRN Allergic 12/10/22 01/20/24 Unknown Symptoms multivitamin 1 tab PO QAM 12/10/22 01/20/24 Unknown omeprazole 40 mg capsule,delayed 40 mg PO QAM 12/10/22 01/20/24 Unknown release potassium 99 mg tablet 99 mg PO QAM 12/10/22 01/20/24 Unknown propranolol 20 mg tablet 20 mg PO BID 12/10/22 01/20/24 Unknown terazosin 10 mg capsule 10 mg PO HS 12/10/22 01/20/24 Unknown acetaminophen 325 mg capsule 650 mg PO Q8H PRN Pain 03/19/23 01/20/24 Unknown (Tylenol) cholecalciferol (vitamin D3) 25 25 mcg PO QAM 03/19/23 01/20/24 Unknown mcg (1,000 unit) capsule clotrimazole-betamethasone 1 1 applic topical DAILY PRN Rash 03/19/23 01/20/24 Unknown %-0.05 % topical cream cyanocobalamin (vitamin B-12) 2,000 mcg PO DAILY 03/19/23 01/20/24 Unknown 1,000 mcg capsule enzalutamide 40 mg capsule (Xtandi) 160 mg PO QAM 03/19/23 01/20/24 Unknown hydroxyzine HCl 25 mg tablet 50 mg PO HS 03/19/23 01/20/24 Unknown leuprolide (3 month) 22.5 mg (3 22.5 mg IM .Q3 months 03/19/23 01/20/24 Unknown month) intramuscular syringe kit (Lupron Depot) magnesium 250 mg tablet 250 mg PO HS 03/19/23 01/20/24 Unknown nystatin 100,000 unit/gram topical 1 applic topical BID PRN Itchiness 03/19/23 01/20/24 Unknown powder furosemide 20 mg tablet (Lasix) 20 mg PO QAM 05/21/23 01/20/24 Unknown sertraline 100 mg tablet (Zoloft) 100 mg PO QPM 07/02/23 01/20/24 Unknown Complete Prostate Health 1 tab PO QAM 11/29/23 01/20/24 Unknown oxycodone 5 mg capsule 5 mg PO QID PRN Pain 11/29/23 01/20/24 Unknown tamsulosin 0.4 mg capsule (Flomax) 0.4 mg PO QAM 11/29/23 01/20/24 Unknown peg 3350-sod sulf,[id number] See Rx Instructions PO .COMPLEX #2 01/13/24 01/20/24 Unknown 178.7-7.3-0.5-1.12-0.9 gram oral mL soln (Suflave) cefdinir 300 mg capsule 300 mg PO BID 10 days #20 caps 01/19/24 01/20/24 Unknown doxycycline hyclate 100 mg tablet 100 mg PO BID 10 days #20 tabs 01/19/24 01/20/24 Unknown Active Medications Generic Name Dose Route Start Last Admin Trade Name Freq PRN Reason Stop Dose Admin Bupropion HCl 300 mg 01/21/24 09:00 01/21/24 08:28 Bupropion Xl 300 Mg Tabcr PO 02/20/24 08:59 300 mg QAM RENA Administration Cyanocobalamin 2,000 mcg 01/21/24 09:00 01/21/24 08:28 Cyanocobalamin (B-12) 500 Mcg Tablet PO 02/20/24 08:59 2,000 mcg DAILY RENA Administration Doxycycline Hyclate 100 mg 01/21/24 09:00 01/21/24 08:28 Doxycycline Hyclate 100 Mg Cap PO 01/26/24 08:59 100 mg BID RENA Administration Fluticasone Furoate 1 puffs 01/21/24 09:00 01/21/24 08:29 Fluticasone Furoate 200mcg 14 Puffs/Inhaler INH 02/20/24 08:59 1 puffs DAILY RENA Administration Hydroxyzine HCl 50 mg 01/20/24 22:18 01/21/24 03:43 Hydroxyzine Hcl 25 Mg Tab PO 02/19/24 22:19 50 mg HS PRN Administration insomnia Miscellaneous 1 each 01/21/24 00:00 01/21/24 15:02 Xtandi~Order Awaiting Action N/A 02/20/24 00:00 Not Given QS RENA Multivitamins 1 tab 01/21/24 09:00 01/21/24 08:27 Multivitamin Tab PO 02/20/24 08:59 1 tab QAM RENA Administration Oxycodone HCl 5 mg 01/20/24 22:29 01/21/24 15:02 Oxycodone Hcl Ir 5 Mg Tab (Immediate Release) PO 02/03/24 22:28 5 mg QID PRN Administration Pain Pantoprazole Sodium 40 mg 01/21/24 09:00 01/21/24 08:27 Pantoprazole 40 Mg Tab PO 02/20/24 08:59 40 mg QAM RENA Administration Propranolol HCl 20 mg 01/21/24 09:00 01/21/24 08:27 Propranolol Hcl 20 Mg Tab PO 02/20/24 08:59 20 mg BID RENA Administration Tamsulosin HCl 0.4 mg 01/21/24 09:00 01/21/24 08:27 Tamsulosin Hcl 0.4 Mg Cap PO 02/20/24 08:59 0.4 mg QAM RENA Administration Umeclidinium/Vilanterol 1 puffs 01/21/24 09:00 01/21/24 08:29 Umeclidinium/Vilanterol 62.5/25mcg 7 Puffs/Inhaler INH 02/20/24 08:59 1 puffs DAILY RENA Administration Vitamin D 25 mcg 01/21/24 09:00 01/21/24 08:28 Cholecalciferol 25 Mcg (1000 Units) Tab PO 02/20/24 08:59 25 mcg QAM RENA Administration
[2024-01-21] MEDS: cefTRIAXone SODIUM 2,000 MG/50 ML BAG IV SCH (18:46)
[2024-01-21] MEDS: guaiFENesin 600 MG TABCR PO SCH (20:01)
[2024-01-21] MEDS: SERTRALINE HCL 100 MG TABLET PO SCH (20:02)
[2024-01-21] MEDS: TERAZOSIN HCL 5 MG CAP PO SCH (20:03)
[2024-01-21 23:04] VITALS: RESP 18
[2024-01-22 06:10] LABS: Hematocrit (blood only) 27.6 % (42.0-52.0); Hemoglobin 9.3 g/dl (14.0-18.0); Mean Corpuscular Hemoglobin 32.7 pg (25.0-34.0); Mean Corpuscular Hgb Conc 33.7 g/dL (32.0-36.0); Mean Corpuscular Volume 97.2 fL (80.0-100.0); Mean Platelet Volume 10.5 fL (9.4-12.4); Nucleated RBC # (auto) 0.05 K/uL (0.00-0.12); Nucleated RBC % (auto) 0.5 %; Platelet Count 101 K/uL (130-400); RDW Coefficient of Variation 13.5 % (11.5-14.5); RDW Standard Deviation 48.3 fL (36.4-46.3); Red Blood Count 2.84 M/uL (4.70-6.10); White Blood Count 10.61 K/ul (4.8-10.8)
[2024-01-22 06:31] LABS: BUN Creatinine Ratio 14.5 (10-20); Creatinine Clr Calc Pharmacy 79.4 ml/min; Magnesium 1.8 mg/dl (1.7-2.4); Potassium 3.5 mmol/L (3.5-5.1)
[2024-01-22] MEDS: POT PHOSPHATE MONOBASIC W/ SOD TAB PO SCH (10:51)
[2024-01-22 10:54] VITALS: O2SAT 94
--- NOTE | 2024-01-22 14:54 | Hospitalist Progress Note ---
Date of Service January 22, 2024 Assessment & Plan (1) SOB (shortness of breath): Plan: Mr. Gama is a 73-year-old gentleman with metastatic prostate cancer, PSVT s/p ablation, HTN, PVD, HLD who is admitted for weakness and fever, ultimately found to have entero/rhinon virius as well as bronchitis. #entero/rhinovirus infection #Acute bronchitis On room air, subjective improvement with doxy continue doxycycline at this time continue ctx iv mucinex bid IS symptomatic management Monitor fever curve #PSVT status post ablation 2022 -No signs of recurrence, occasional PVC on monitor monitor on tele continue propranolol BID #HTN #valvular heart disease (mild MR, moderate TR) #PVD #hyperlipidemia continue on statin Rx #Acute on chronic anemia FOBT negative No signs of bleeding, recieved IVF likley iso chronic disease/malignancy trend CBC #Acute thrombocytopenia, likely iso acute illness uptrending since admission, from 89 to 104 CTM #LUTS #Metastatic prostate cancer On Lupron and Xtandi since 06/2021 on monthly xgeva follows urology (Dr. Huggins) and medical oncology (Dr. Corea) continue flomax DVT scds l Admission and Anticipated Discharge Date Admission Date: January 20, 2024 Review of Systems Review of Systems: All systems reviewed & are unremarkable except as noted in Subjective Physical Exam Physical Exam: General: Alert, oriented. No acute distress Skin: No noted rashes or bruises Psych: Appropriate mood and affect Neuro: No gross deficits HEENT: NC/AT, PERRLA, EOMI, oropharynx moist. Chest: Nontender to palpation. CV: RRR, Normal s1, s2. No murmurs appreciated Resp: Breath sounds clear bilaterally, no increased effort of breathing. No crackles/rhonchi/rales. Abdomen: BS+. Soft, nontender, nondistended. No guarding. No organomegaly appreciated. Extremities: No edema in lower extremities bilaterally. Results & Data Results & Data Vital Signs (Past 12 Hours) Vital Signs Temp Pulse Pulse Resp BP BP Pulse Ox 01/22/24 12:20 01/22/24 11:48 01/22/24 10:54 36.7 C 86 18 97/54 L 94 01/22/24 07:29 36.8 C 79 18 112/69 95 11/13/24 05:48 60 01/22/24 02:54 36.6 C 79 18 107/62 94 O2 Del Method O2 Del Method 01/22/24 12:20 Room Air 01/22/24 11:48 Room Air 01/22/24 10:54 Room Air 01/22/24 07:29 Room Air 01/22/24 05:48 01/22/24 02:54 Room Air
[2024-01-22 15:49] VITALS: TEMP 98.2
[2024-01-22 16:11] LABS: Adenovirus F 40/41 PCR Not Detected (NotDetected); Astrovirus PCR Not Detected (NotDetected); Campylobacter PCR Not Detected (NotDetected); Cryptosporidium PCR Not Detected (NotDetected); Cyclospora cayetanensis PCR Not Detected (NotDetected); Entamoeba histolytica PCR Not Detected (NotDetected); Enteroaggregative E.coli(EAEC) Not Detected (NotDetected); Enteropathogenic E.coli (EPEC) Not Detected (NotDetected); Enterotoxigenic E.coli (ETEC) Not Detected (NotDetected); Giardia lamblia PCR Not Detected (NotDetected); Norovirus GI/GII PCR Not Detected (NotDetected); Plesiomonas shigelloides PCR Not Detected (NotDetected); Rotavirus A PCR Not Detected (NotDetected); Salmonella PCR Not Detected (NotDetected); Sapovirus PCR Not Detected (NotDetected); Shiga-like Toxin E.coli (STEC) Not Detected (NotDetected); Shigella/Enteroinvasive E.coli Not Detected (NotDetected); Vibrio cholerae PCR Not Detected (NotDetected); Vibrio species PCR Not Detected (NotDetected); Yersinia enterocolitica PCR Not Detected (NotDetected)
[2024-01-22] MEDS ORDERED: LOPERAMIDE HCL 2 MG CAP PO PRN (16:45)
--- NOTE | 2024-01-22 17:07 | Discharge Summary ---
Discharge Summary Date of Service January 22, 2024 Principal Dx & Hospital Course #1 = Principal Diagnosis (1) SOB (shortness of breath): Plan Mr. Gama is a 73-year-old gentleman with metastatic prostate cancer, PSVT s/p ablation, HTN, PVD, HLD who is admitted for weakness and fever, ultimately found to have entero/rhinon virius as well as bronchitis. entero/rhinovirus infection Acute bronchitis On room air, never required additional oxygen supplementation Treated with doxycycline and ceftriaxone Pt with previous prescription for po cefdinir and doxycycline, advised to continue with it for an additional 8 days mucinex bid symptomatic management On day of discharge pt with improved symptoms. PCP follow up Diarrhea Pt with diarrhea C diff testing and stool culture unremarkable PRN Imodium, pt states he has this at home held home lasix in this setting. PCP followup to determine when to resume after discharge. Pt was stable on day of discharge with normal vitals. PO hydration encouraged. PCP followup to ensure resolution and to resume home lasix Hypophosphatemia Phosphate level at 2.0 on 01/21 and supplemented with po phosphorus tabs QID Discharged with an additional 3 days of po supplementation Please repeat phosphorus levels in 3 days to ensure adequate supplementation Close PCP followup after discharge PSVT status post ablation 2022 No signs of recurrence, occasional PVC on monitor continue propranolol BID PCP followup HTN valvular heart disease (mild MR, moderate TR) PVD Stable Specialist f/u after discharge hyperlipidemia continue on statin Rx Acute on chronic anemia FOBT negative No signs of bleeding, received IVF likely in setting of chronic disease/malignancy Stable PCP followup after discharge Acute thrombocytopenia likely in setting of acute illness uptrending since admission, from 89 to 101 on discharge PCP follow up LUTS Metastatic prostate cancer On Lupron and Xtandi since 06/2021 on monthly xgeva follows with urology (Dr. Huggins) and medical oncology (Dr. Corea) continue flomax Notes For Next Care Provider Please repeat phosphorus level in 2 to 3 days after discharge to ensure adequate supplementation. Please continue to monitor pt's anemia and thrombocytopenia Please ensure resolution of diarrhea Medication Changes From Visit HOLD home Lasix until PCP follow-up Phosphorus supplements QID for 3 days Continue previously prescribed p.o. cefdinir and doxycycline for 8 more days Admission HPI Per Admitting Provider History obtained from patient, family, and records. Medical history significant for PSVT status post ablation, valvular heart disease (mild MR, moderate TR), PVD, hypertension, hyperlipidemia, metastatic prostate cancer status post radiation on Lupron and chemotherapy, BPH, GERD, chronic anemia (baseline hemoglobin 11-12), past tobacco abuse. Last confinement December 2022 for SVT status post ablation. Few days history of generalized weakness low-grade fever and junky cough symptoms. Sick granddaughter at home. Achy chest pain with cough symptoms. Denies hemoptysis. Denies aspiration. No headache, no abdominal pain, no black/bloody stools, no hematuria. Patient seen at [facility] ER yesterday. Entero-/rhinovirus swab positive. Chest x-ray showed mild cardiomegaly with pulmonary vascular congestion. Edema versus pneumonia. Admission recommended but patient declined. Patient sent home on cefdinir and doxycycline Rx. Symptoms improved but patient sent back to ER by oncologist after appointment today. 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 Admission Exam Per Admitting Provider GENERAL: Comfortable, pleasant, slightly hard of hearing, no respiratory distress SKIN: pallor, warm HEENT: Pale palpebral conjunctivae, no ptosis, dry buccal mucosa NECK : Supple, no tenderness CHEST : Decreased breath sounds, no tenderness HEART : RRR, no obvious murmurs ABDOMEN: Some distention, nontender RECTAL : Intact sphincter, brown stool (FOBT negative) EXTREMITIES : No LE swelling/tenderness, no other conspicuous deformities noted NEUROLOGIC : Coherent, no facial asymmetry, slightly hard of hearing, no other gross focality Discharge Exam General: Alert, oriented. No acute distress Psych: Appropriate mood and affect HEENT: NC/AT CV: RRR Resp: Breath sounds clear bilaterally, no increased effort of breathing Abdomen: Soft, nontender Extremities: No edema in lower extremities bilaterally. Updated Medication List Medication Instructions Recorded Confirmed Type ascorbic acid (vitamin C) 1,000 mg 1 g PO BID 12/10/22 01/20/24 History tablet (Vitamin C) atorvastatin 40 mg tablet 40 mg PO QPM 12/10/22 01/20/24 History budesonide 160 mcg-glycopyr 9 2 inh inhalation DAILY 12/10/22 01/20/24 History mcg-formot 4.8 mcg/actuation HFA inhaler (Breztri Aerosphere) bupropion HCl 300 mg 24 hr tablet, 300 mg PO QAM 12/10/22 01/20/24 History extended release (Wellbutrin XL) calcium carbonate 600 mg PO QAM 12/10/22 01/20/24 History fexofenadine 180 mg tablet 180 mg PO DAILY PRN Allergic 12/10/22 01/20/24 History Symptoms multivitamin 1 tab PO QAM 12/10/22 01/20/24 History omeprazole 40 mg capsule,delayed 40 mg PO QAM 12/10/22 01/20/24 History release potassium 99 mg tablet 99 mg PO QAM 12/10/22 01/20/24 History propranolol 20 mg tablet 20 mg PO BID 12/10/22 01/20/24 History terazosin 10 mg capsule 10 mg PO HS 12/10/22 01/20/24 History acetaminophen 325 mg capsule 650 mg PO Q8H PRN Pain 03/19/23 01/20/24 History (Tylenol) cholecalciferol (vitamin D3) 25 25 mcg PO QAM 03/19/23 01/20/24 History mcg (1,000 unit) capsule clotrimazole-betamethasone 1 1 applic topical DAILY PRN Rash 03/19/23 01/20/24 History %-0.05 % topical cream cyanocobalamin (vitamin B-12) 2,000 mcg PO DAILY 03/19/23 01/20/24 History 1,000 mcg capsule enzalutamide 40 mg capsule (Xtandi) 160 mg PO QAM 03/19/23 01/20/24 History hydroxyzine HCl 25 mg tablet 50 mg PO HS 03/19/23 01/20/24 History leuprolide (3 month) 22.5 mg (3 22.5 mg IM .Q3 months 03/19/23 01/20/24 History month) intramuscular syringe kit (Lupron Depot) magnesium 250 mg tablet 250 mg PO HS 03/19/23 01/20/24 History nystatin 100,000 unit/gram topical 1 applic topical BID PRN Itchiness 03/19/23 01/20/24 History powder furosemide 20 mg tablet (Lasix) 20 mg PO QAM 05/21/23 01/20/24 History sertraline 100 mg tablet (Zoloft) 100 mg PO QPM 07/02/23 01/20/24 History Complete Prostate Health 1 tab PO QAM 11/29/23 01/20/24 History oxycodone 5 mg capsule 5 mg PO QID PRN Pain 11/29/23 01/20/24 History tamsulosin 0.4 mg capsule (Flomax) 0.4 mg PO QAM 11/29/23 01/20/24 History peg 3350-sod sulf,cpynj-bxf-epd See Rx Instructions PO .COMPLEX #2 01/13/24 01/20/24 Rx 178.7-7.3-0.5-1.12-0.9 gram oral mL soln (Suflave) cefdinir 300 mg capsule 300 mg PO BID 10 days #20 caps 01/19/24 01/20/24 Rx doxycycline hyclate 100 mg tablet 100 mg PO BID 10 days #20 tabs 01/19/24 01/20/24 Rx sodium di- and 2 tab PO QID #24 tabs 01/22/24 Rx monophosphate-potassium phos monobasic 250 mg tablet (Phospha Neutral) Hospital Stay Data Consultations 01/20/24 20:17 ED Decision to Admit Stat Diagnostic Imagining Performed 01/20/24 22:16 CT angio chest PE protocol Stat Chest X-Ray 01/20/24 18:06 EXAM: XR chest 2V PA/lateral CLINICAL HISTORY: DYSPNEA HKS/KFK TECHNIQUE: X-ray images of the chest were obtained in posteroanterior (PA) and lateral projections. COMPARISON: Prior PET CT dated 12/25/2023 was reviewed. FINDINGS: Pulmonary Parenchyma: Prominent bilateral broncho vascular markings. No evidence of consolidation, collapse, or focal opacities. No pulmonary nodules were identified. No evidence of pleural effusion or pleural thickening. Heart and Mediastinum: Heart size and shape are normal. No mediastinal widening or masses. No hilar or mediastinal lymphadenopathy. Bony Thorax: Multiple sclerotic osseous lesions are seen at the dorsal spine. Soft Tissues: Soft tissues overlying the chest wall are unremarkable. IMPRESSION: 1. Prominent bilateral broncho vascular markings. likely congestion. 2. Multiple sclerotic osseous lesions are seen at the dorsal spine. likely metastatic. Further, workup is advised. Electronically signed by Shayla Perry 01-20-2024 8:12 PM Chest CTA 01/20/24 22:16 EXAM: CT angio chest PE protocol CLINICAL HISTORY: Pt reports was here last night, PCP wants him to be admit for ABX, under going treatment to [place], 77 ml opti 320 PW TECHNIQUE: Contiguous axial images were obtained from the neck base through the upper abdomen following intravenous administration of iodinated contrast material. Angiographic images were processed, 3D MIP images were acquired for interpretation. If IV contrast material had not been administered, the likelihood of detecting abnormalities relevant to the patient's condition would have been substantially decreased. Coronal and sagittal 3-D MIPs were likewise performed and indicated to increase the sensitivity of detectin diffuse clinically relevant pathology. CT scan was performed according to ALARA (as low as reasonable achievable). COMPARISON: - FINDINGS: Adequate contrast bolus without evidence of pulmonary embolism. The central airways are patent. Right basal pleural effusion is seen with basal collapse Left basal pleural thickening is seen with atelectatic bands in the lower lobe The heart, aorta, and pulmonary arteries are of normal size and configuration. There is appreciable coronary artery and aortic atherosclerotic calcifications. No pericardial effusion is identified. The thyroid is unremarkable. No mediastinal, hilar, or axillary lymphadenopathy is noted. Ill-defined sclerotic lesions are seen in the thoracic vertebra and few ribs. Degnerative changes in the visualized spine IMPRESSION: 1. No evidence of pulmonary embolism 2. Ill-defined sclerotic lesions are seen in the thoracic vertebra and few ribs- likely to suggest metastases 3. Right basal pleural effusion is seen with basal collapse 4. Left basal pleural thickening is seen with atelectatic bands in the lower lobe Electronically signed by Soy Rouse 01-21-2024 01:44 AM Pending Results Patient Have Any Pending Studies at Discharge: No Discharge Instructions Given to Patient (Per Discharging Provider) John, You are admitted and treated for an enterovirus infection and concern for a superimposed bronchitis or pneumonia. We treated you with antibiotics and gave you fluids and your symptoms seemed to improve. Continue with the antibiotics you are previously prescribed and per your son you still have at home. It appears that you were prescribed doxycycline and cefdinir. Continue with those for another 8 days. You also had some diarrhea. We tested your stool and you did not test positive for an acute infection. Please continue with your as needed Imodium that you have at home. Continue to stay hydrated as much as possible. Continue to hold your home Lasix while you have the diarrhea. Do not take it at home until you follow-up with your primary care provider after discharge. Your phosphorus levels were also noted to be low and we are discharging you home with 3 more days of phosphorus oral supplements like you were taking while in the hospital. Your primary care provider will repeat your levels and continue to monitor that for you after discharge. Please keep close follow-up with all your specialists after discharge. Please keep close follow up with your primary care provider after discharge. Please do not hesitate to come back to the emergency room if your symptoms wor sen or return. It was a pleasure taking care of you while you were here. Total Time Total Time Spent Total Time Spent (In Minutes): 65
[2024-01-22 17:14] VITALS: BP 107/62; PULSE 79
--- NOTE | 2024-01-23 15:28 | Electrocardiogram Report ---
Test Reason : Blood Pressure : */* mmHG Vent. Rate : 88 BPM Atrial Rate : 88 BPM P-R Int : 130 ms QRS Dur : 84 ms QT Int : 380 ms P-R-T Axes : -11 -48 5 degrees QTcB Int : 459 ms Normal sinus rhythm with sinus arrhythmia Left anterior fascicular block Minor Nonspecific ST abnormality Anterior leads Abnormal ECG When compared with ECG of 19-Jan-2024 19:54, Premature atrial complexes are no longer Present Confirmed by Dimas Martins ([id number]) on 01/23/2024 3:28:27 PM Referred By: Confirmed By: Dimas Martins
== END 2024-01-22 18:17 | disposition home or self-care (01) ==
LOC: EDINP 17:59 → ED 17:59 → SUATTDRO 22:15 → 2W 01-21 00:55

== ENCOUNTER 2024-02-28 02:26 | Observation (INO) ==
[2024-02-28 02:41] VITALS: TEMP 98.2
[2024-02-28 03:32] LABS: Basophils # (auto) 0.02 K/uL (0.00-0.20); Basophils % (auto) 0.2 %; Hematocrit (blood only) 29.3 % (42.0-52.0); Hemoglobin 9.7 g/dl (14.0-18.0); Immature Granulocytes # (auto) 0.06 K/uL (0.01-0.20); Immature Granulocytes % (auto) 0.7 %; Lymphocytes # (auto) 0.49 K/uL (1.20-3.40); Lymphocytes % (auto) 5.9 %; Mean Corpuscular Hemoglobin 32.4 pg (25.0-34.0); Mean Corpuscular Hgb Conc 33.1 g/dL (32.0-36.0); Mean Platelet Volume 9.1 fL (9.4-12.4); Monocytes # (auto) 0.77 K/uL (0.11-0.59); Monocytes % (auto) 9.3 %; Neutrophils # (auto) 6.95 K/uL (1.40-6.50); Neutrophils % (auto) 83.9 %; Platelet Count 200 K/uL (130-400); RDW Coefficient of Variation 15.3 % (11.5-14.5); RDW Standard Deviation 53.9 fL (36.4-46.3); Red Blood Count 2.99 M/uL (4.70-6.10); White Blood Count 8.29 K/ul (4.8-10.8)
[2024-02-28 03:43] LABS: Alanine Aminotransferase 8 U/L (7-52); Albumin Globulin Ratio 1.2 (0.9-2); Albumin Level 3.6 gm/dl (3.4-5.0); Alkaline Phosphatase 76 U/L (34-104); Anion Gap 9 (3-11); Aspartate Aminotransferase 15 U/L (13-39); Bilirubin,Total 0.7 mg/dl (0.2-1.0); Blood Urea Nitrogen 9 mg/dl (6-23); Calcium 8.1 mg/dl (8.6-10.3); Carbon Dioxide 25 mmol/L (21-32); Chloride 99 mmol/L (98-107); Globulin 2.9 gm/dl (2.5-4.0); Glucose 103 mg/dl (70-99(Fasting)); Potassium 4.2 mmol/L (3.5-5.1); Sodium 133 mmol/L (136-145); Total Protein 6.5 gm/dl (6.0-8.3)
[2024-02-28 03:58] LABS: Thyroid Stimulating Hormone 1.314 uIu/ml (0.300-4.500)
[2024-02-28 04:02] LABS: Adenovirus PCR Not Detected (NotDetected); Bordetella parapertussis PCR Not Detected (NotDetected); Bordetella pertussis PCR Not Detected (NotDetected); Chlamydia pneumoniae PCR Not Detected (NotDetected); Coronavirus 229E PCR Not Detected (NotDetected); Coronavirus CoV-2 (COVID19)PCR Not Detected (NotDetected); Coronavirus HKU1 PCR Not Detected (NotDetected); Coronavirus NL63 PCR Not Detected (NotDetected); Coronavirus OC43PCR Not Detected (NotDetected); Human Metapneumovirus PCR Not Detected (NotDetected); Influenza A PCR Not Detected (NotDetected); Influenza B PCR Not Detected (NotDetected); Mycoplasma pneumoniae PCR Not Detected (NotDetected); Parainfluenza Virus 1 PCR Not Detected (NotDetected); Parainfluenza Virus 2 PCR Not Detected (NotDetected); Parainfluenza Virus 3 PCR Not Detected (NotDetected); Parainfluenza Virus 4 PCR Not Detected (NotDetected); Respiratory Syncytial VirusPCR Not Detected (NotDetected); Rhinovirus/Enterovirus PCR Not Detected (NotDetected)
--- NOTE | 2024-02-28 04:35 | XRay Report ---
EXAM: XR chest 1V portable CLINICAL HISTORY: Weakness, JMF. TECHNIQUE: X-ray images of the chest were obtained in posteroanterior (PA) and lateral projections. COMPARISON: Prior x-ray chests dated 02/09/2024 and 01/20/2024 were reviewed. FINDINGS: Pulmonary Parenchyma: Prominent bilateral broncho vascular markings. No evidence of consolidation, collapse, or focal opacities. No pulmonary nodules were identified. No evidence of pleural effusion or pleural thickening. Heart and Mediastinum: A possible left hilar opacity is seen. Heart size and shape are normal. No mediastinal widening or masses. Bony Thorax: Multiple sclerotic osseous lesions are seen at the thoracic spine seen previously are not conspicuous on AP view. Soft Tissues: Soft tissues overlying the chest wall are unremarkable. IMPRESSION: 1. Prominent bilateral broncho vascular markings, likely congestion. 2. Possible left hilar opacity is seen. 3. No interval changes could be detected, in comparison to prior X-rays. Electronically signed by Shayla Perry 02-28-2024 04:35 AM
--- NOTE | 2024-02-28 04:43 | Emergency Department Note ---
ED Visit Note NAME: FARAZ BARRY AGE: 73 SEX: Male INFORMANT: Patient ED PROVIDER(S): Maria Victoria Taylor DO CHIEF COMPLAINT: Cough, weakness, dehydration PLAN: Disposition: Admit to the [facility] MEDICAL DECISION MAKING: this is a 73-year-old male patient who presents to the emergency department with cough, weakness and dehydration. The patient is suffering from metastatic prostate cancer. he had recently been diagnosed with C. difficile. Last week he had been provided IV fluids and IV potassium in the outpatient setting. Most of the history is obtained from his son. He has not been taking any of his medications. Today he presents here confused. CT scans shows evidence of chronic subdurals. The patient has no leukocytosis. There is a chronic anemia with a hemoglobin of 9.7. Glucose is 103. Patient has significant lower extremity edema and has not been taking any of his medications including cardiac meds. He appears quite dehydrated on physical exam. There is questionable opacity on the chest x-ray at the left hilum. [facility] and they will evaluate for further inpatient care. Care/management discussed with: aviation program manager and [facility] Triage Nursing notes: reviewed and agree with them. Vital Signs: reviewed and remarkable for tachycardia Additional History obtained from: patient's son who brought him here. Chronic Medical/Social Conditions affecting care: Metastatic prostate cancer Prior/ Outside/ External records reviewed: none Differential Diagnosis: JENNI, dehydration, metastatic cancer to the brain, electrolyte abnormality, hypoglycemia Diagnostics, independently interpreted by me: Cardiac Monitoring: Sinus tachycardia at 104 Imaging studies: Portable chest x-ray: As per Imb[facility] CT scan of the brain: As per [facility] HPI: 73 year old Male arrives for evaluation of cough, weakness, dehydration and confusion. Patient has a history of metastatic prostate cancer and presents here with some confusion, cough, weakness and dehydration over the past couple of days. The patient is not taking any of his medications. He was recently diagnosed with C. difficile and is unable to take the antibiotics.. PAST MEDICAL HISTORY: See Below, PAST SURGICAL HISTORY: See Below, SOCIAL HISTORY: See Below, HOME MEDICATIONS: See list ALLERGIES: VITALS: See below PHYSICAL EXAMINATION: HEENT: Head - normocephalic and atraumatic. Pupils are equal, round, and reactive to light. Extraocular eye muscles are intact and sclera are anicteric. Nose - moist nasal mucosa without discharge. Mouth - moist buccal mucosa. Oropharynx is nonerythematous and there is no tonsillar exudate or edema noted. Neck: Supple; no JVD, nuchal rigidity, cervical lymphadenopathy Heart: Tachycardic rate and rhythm. There is a normal S1 and S2 with no murmurs, clicks, or gallops appreciated. Lungs: Clear to auscultation bilaterally with no wheezes, rales, or rhonchi. Abdomen: Soft, completely nontender, nondistended, with good bowel sounds. There are no palpable pulsatile masses or hepatosplenomegaly. There is no guarding, rigidity, or rebound noted. Extremities:2+ pitting edema both lower extremities. Emergency Department course: The patient was evaluated in room there are easily palpable peripheral pulses. Neuro:The patient is awake and alert, oriented to person and place. Muscle strength is 5/5 in all 4 extremities. The patient has equal electrician master strength and equal pedal push and pull. There are no cerebellar signs. Emergency department course: The patient was evaluated in room B-4. A complete history and physical was performed. An order was placed for continuous cardiac monitoring. The patient was in a sinus tachycardia at a rate of 104. A twelve- lead EKG was obtained as described above. Patient had a portable chest x-ray as described above. He went for a CT scan of his brain. I reviewed the results with the patient's son. I discussed the case with the [facility] Hospitalist .
--- NOTE | 2024-02-28 05:30 | CT Scan Report ---
EXAM: CT head/brain wo con CLINICAL HISTORY: AMS, HX OF PROSTATE AND BONE CA. TECHNIQUE: An axial non-contrast CT scan of the brain was performed from the skull base to the high parietal region with multiple reformats. One of the following dose reduction techniques was utilized for this exam: Automated exposure control, adjustment of the mA and/or kV according to patient size, and use of iterative reconstruction. COMPARISON: CT Head dated 01/19/2024. FINDINGS: Brain Parenchyma: Stable diffuse chronic microvascular ischemic disease. Normal attenuation of the cerebellum, and brainstem. No evidence of established territorial infection. Ventricular System: Mild dilatation of the ventricular system, with diffuse periventricular hypodensity, likely due to diffuse chronic ischemic changes. Subarachnoid Spaces: Increased extra-axial subarachnoid spaces with prominent gyri and deep sulci of the brain, prominent cerebellar folia, basal cisterns, and Anthony fissures. Evidence of left bvdkppa-kdakxnza-otggytdr-occipital subdural chronic hematoma associated with mild defacement of the left lateral ventricle and a midline shift to the right side of about 5 mm. Cerebellum and Brainstem: Normal size and signal. No masses, lesions, or areas of abnormal signal. Orbits: Normal appearance of the globes, optic nerves, and extraocular muscles. No evidence of orbital masses or abnormal signals. Sinuses: Clear paranasal sinuses. No evidence of sinusitis or mucosal thickening. Mastoid Air Cells: Clear mastoid air cells. No evidence of mastoiditis. Skull: No acute calvarial fracture. IMPRESSION: 1. Newly seen left ugnpirt-jofvghqo-kefvdlwo-occipital subdural chronic hematoma associated with mild defacement of the left lateral ventricle and a midline shift to the right side of about 5 mm. 2. Stable diffuse Brain Atrophic changes 3. Stable diffuse chronic microvascular ischemic disease. 4. MRI brain with contrast may be helpful for further evaluation in keeping with history. [facility] was called at [phone] at 4:28 AM [employer]PLICATION[employer]OCIATE on 02/28/2024, and results were verbally communicated with Maria Victoria Conte. Electronically signed by Shayla Perry 02-28-2024 05:30 AM
[2024-02-28 05:51] LABS: Appearance Urine Clear (Clear); Bacteria Urine Automated None Seen (None Seen); Bilirubin Urine Negative (Negative); Blood Urine Negative (Negative); Cast Urine Automated 0-2 /lpf (0-2); Color Urine Yellow; Epithelial Cell Urine Auto 0-2 /hpf (0-2); Glucose Urine UA Negative (Negative); Ketones Urine 3+ (Negative); Leukocyte Esterase Urine Negative (Negative); Nitrite Urine Negative (Negative); Protein Urine Trace (Negative); RBC Urine Automated 0-2 /hpf (0-2); Specific Gravity Urine 1.021 (1.000-1.030); Urobilinogen Urine Negative (Negative); WBC Urine Automated 0-5 /hpf (0-5); pH Urine 7.5 (4.5-7.5)
[2024-02-28] MEDS: THIAMINE HCL 200 MG in SODIUM CHLORIDE 0.9% 50 ML IV STA (08:18)
--- NOTE | 2024-02-28 08:18 | History & Physical Report ---
Date of Service February 28, 2024 Assessment & Plan (1) Acute dehydration: Plan: 73-year-old male with past medical history significant for PSVT status post ablation, valvular heart disease(mild MR, moderate TR) peripheral vascular disease, hypertension, hyperlipidemia, metastatic prostate cancer s/p radiation and as per son currently chemo is held for last 1 month and there is a plan to start new pills, BPH, GERD, chronic anemia, past tobacco abuse and recent diagnosis of C. difficile who lives at home with his was brought in by his son because of weakness, dehydration, poor p.o. intake and also not taking his pills. Patient is alert and oriented x 2. Do not know current dates which is usual for him as per son. Son is also worried that patient may getting dementia as he is getting confused for last 6 months and want to know whether he has de mentia. Since patient was started on chemo he is having a lot of chills. Has nausea but no vomitings. Having lot of diarrhea. Micturating okay. Was not taking his pills and son thinks patient is not keen to take his medications. Has some swelling the legs as he was not eating his Lasix. Usually ambulates without support but somewhat wobbly but lately not ambulating because of weakness. Patient denies any headache. Denies chest pain. Denies neck pain or back pain. Denies abdominal pain. Denies shortness of breath. Son was also worried that patient may have having brain mets and CT scan was done in the ER which showed left frontotemporal parietal occipital subdural chronic hematoma associate with mild effacement of the left lateral ventricle and midline shift to the right side of about 5 mm. Son states when patient was here in ER in January with fall and had a bruise on his left brow region, and CT seemed okay at that time. As per son patient also falls frequently at home. Son says patient is in the process of getting a PCP. Follows with urology() and heme-onc() with [facility]. Patient admitted last month with acute bronchitis, enterorhinovirus infection.Seems last week was given IV fluids and IV potassium at the cancer center as per son Acute dehydration and weakness C. difficile infection with diarrhea Poor oral intake Gentle fluids PT OT when stable C. difficile P.o. vancomycin Seems not taking p.o. meds Will continue p.o. vancomycin and place on IV Flagyl Will monitor Confusion From ongoing illness Possible underlying dementia Will follow MRI scan Chronic subdural hematomas CT scan showing:. Newly seen left aofmtrm-lfboiyis-riebohlw-occipital subdural chronic hematoma associated with mild defacement of the left lateral ventricle and a midline shift to the right side of about 5 mm". Will follow MRI Fall precautions Neurology consult for further recommendation Metastatic prostate cancer Will follow MRI scan Chemo as per heme-onc Will consult heme-onc LUTS On Flomax and terazosin Valvular heart disease Mild MR and moderate TR Has lower extremity edema Getting gentle fluids Holding home Lasix for now Monitor for volume overload Lower EXTR edema We will check for DVTs History of electrolyte abnormalities We will follow labs Hypertension On propranolol and terazosin We will monitor Hyperlipidemia On statin History of PSVT status post ablation On propranolol Chronic anemia Hemoglobin 9.7 Around baseline We will monitor Chronic pain Continue home pain medications as needed GERD On omeprazole Depression On Zoloft and Wellbutrin DVT prophylaxis SCDs for now Disposition Med/telemetry CODE STATUS DNR/DNI per discussion with the son History of Present Illness Chief Complaint: Weakness, dehydration and C. difficile Primary Care Provider: NO PCP 73-year-old male with past medical history significant for PSVT status post ablation, valvular heart disease(mild MR, moderate TR) peripheral vascular disease, hypertension, hyperlipidemia, metastatic prostate cancer s/p radiation and as per son currently chemo is held for last 1 month and there is a plan to start new pills, BPH, GERD, chronic anemia, past tobacco abuse and recent margy gnosis of C. difficile who lives at home with his was brought in by his son because of weakness, dehydration, poor p.o. intake and also not taking his pills. Patient is alert and oriented x 2. Do not know current dates which is usual for him as per son. Son is also worried that patient may getting dementia as he is getting confused for last 6 months and want to know whether he has dementia. Since patient was started on chemo he is having a lot of chills. Has nausea but no vomitings. Having lot of diarrhea. Micturating okay. Was not taking his pills and son thinks patient is not keen to take his medications. Has some swelling the legs as he was not eating his Lasix. Usually ambulates without support but somewhat wobbly but lately not ambulating because of weakness. Patient denies any headache. Denies chest pain. Denies neck pain or back pain. Denies abdominal pain. Denies shortness of breath. Son was also worried that patient may have having brain mets and CT scan was done in the ER which showed left frontotemporal parietal occipital subdural chronic hematoma associate with mild effacement of the left lateral ventricle and midline shift to the right side of about 5 mm. Son states when patient was here in ER in January with fall and had a bruise on his left brow region, and CT seemed okay at that time. As per son patient also falls frequently at home. Son says patient is in the process of getting a PCP. Follows with urology() and heme[facility]onc() with [facility]. Patient admitted last month with acute bronchitis, enterorhinovirus infection.Seems last week was given IV fluids and IV potassium at the cancer center as per son Past medical history. As mentioned above. Past surgical history. Urological procedures. Back surgery. Appendectomy. Family significant for dementia. Diabetes. Heart disease. Social history. Obstructive history of tobacco abuse. Alcohol occasional. 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 Allergies Allergy/AdvReac Type Severity Reaction Status Date / Time No Known Allergies Allergy Verified 11/29/23 08:04 Home Medications Medication Instructions Recorded Confirmed Type ascorbic acid (vitamin C) 1,000 mg 1 g PO BID 02/28/24 02/28/24 History tablet (Vitamin C) atorvastatin 40 mg tablet 40 mg PO HS 02/28/24 02/28/24 History budesonide 160 mcg-glycopyr 9 2 inh inhalation BID 02/28/24 02/28/24 History mcg-formot 4.8 mcg/actuation HFA inhaler (Breztri Aerosphere) bupropion HCl 300 mg 24 hr tablet, 300 mg PO DAILY 02/28/24 02/28/24 History extended release calcium carbonate 600 mg PO DAILY 02/28/24 02/28/24 History cholecalciferol (vitamin D3) 25 25 mcg PO DAILY 02/28/24 02/28/24 History mcg (1,000 unit) chewable tablet (Vitamin D3) cyanocobalamin (vitamin B-12) 2,000 mcg PO DAILY 02/28/24 02/28/24 History 1,000 mcg tablet enzalutamide 40 mg capsule (Xtandi) 160 mg PO DAILY 02/28/24 02/28/24 History fexofenadine 180 mg tablet 180 mg PO DAILY PRN Allergic 02/28/24 02/28/24 History Symptoms furosemide 20 mg tablet 20 mg PO DAILY 02/28/24 02/28/24 History hydroxyzine HCl 25 mg tablet 50 mg PO HS PRN Anxiety 02/28/24 02/28/24 History leuprolide (3 month) 22.5 mg (3 22.5 mg IM UD 02/28/24 02/28/24 History month) intramuscular syringe kit (Lupron Depot) magnesium 250 mg tablet 250 mg PO DAILY 02/28/24 02/28/24 History multivitamin 1 tab PO DAILY 02/28/24 02/28/24 History omeprazole 40 mg capsule,delayed 40 mg PO DAILY 02/28/24 02/28/24 History release oxycodone 5 mg tablet 5 mg PO QID PRN Pain, Severe 02/28/24 02/28/24 History potassium 99 mg tablet 99 mg PO DAILY 02/28/24 02/28/24 History propranolol 20 mg tablet 20 mg PO BID 02/28/24 02/28/24 History sertraline 100 mg tablet 100 mg PO HS 02/28/24 02/28/24 History tamsulosin 0.4 mg capsule 0.4 mg PO HS 02/28/24 02/28/24 History terazosin 10 mg capsule 10 mg PO DAILY 02/28/24 02/28/24 History Past Med/Surg History Problem List (Updated 02/24/24 @ 00:05 by Ana María Cali) Hypophosphatemia SOB (shortness of breath) Rhinovirus infection (Acute) Pneumonia (Acute) Acute dehydration (Acute) Hypomagnesemia (Acute) Pancytopenia (Acute) Fall (Acute) Head injury (Acute) Generalized weakness (Acute) Pneumonia (Acute) Lower urinary tract symptoms (LUTS) GARVIN (dyspnea on exertion) Neoplasm of prostate, distant metastasis staging category M1b: metastasis to bone (Chronic) Fatigue SVT (supraventricular tachycardia) (Acute) Weakness (Acute) Dizziness (Acute) Carotid artery, internal, occlusion (Acute) Ureterolithiasis Scrotal pain Prostate cancer Urinary frequency Dyslipidemia Premature supraventricular beats Arrhythmia Concern for a.fib during preop evaluation prior to planned EGD/colonoscopy 06/[address] [facility]. Subsequently seen by PA cardio 07/05/22, low suspicion for a. fib > 14 residential monitor recommended/noted no evidence of a. fib Encounter for pre-operative examination Lumbar spondylosis Globus sensation Change in bowel habits Depression History of back surgery L2-5 fusion Atherosclerosis of arteries Nocturia Eczema Diarrhea Constipation Dysphagia Medical History GARVIN (dyspnea on exertion) Depression Hx of cardiac arrhythmia Concern for a.fib during preop evaluation prior to planned EGD/colonoscopy 06/[address] [facility]. Subsequently seen by PA cardio 07/05/22, low suspicion for a. fib > 14 residential monitor recommended/noted no evidence of a. fib Occasional tremors COPD (chronic obstructive pulmonary disease) Occlusion of right internal carotid artery HTN (hypertension) Anxiety Acid reflux Seasonal allergies Kidney stone hx Poor historian Prostate cancer metastatic to bone 05/2022 prostate- oral denies any radiation/chemo Osteoarthritis Chronic back pain Spinal stenosis Globus sensation Pt denies Surgical History History of lumbar fusion H/O cardiac radiofrequency ablation For SVT on 12/11/22 - Follows [facility] H/O cystoscopy Cystoscopy, Left Ureteronephroscopy, Laser destruction, Basket Extraction of the Stone, Insertion Stent Catheter History of colonoscopy History of appendectomy Family History Sister Medical history unknown Pt had 8 sisters - 1 in MVA and 7 still living - none with cancer Mother , in her 80s Dementia Diabetes Myocardial infarction Hypertension Father , in his 80s Cancer Pt uncertain of type Brother No problems noted. Brother No problems noted. Brother No problems noted. Brother No problems noted. Brother No problems noted. Son No problems noted. Son No problems noted. Son No problems noted. Son No problems noted. Denies family history of Crohn's disease Colorectal cancer Ulcerative colitis Social History Smoking Status: Former smoker Tobacco Type: Cigarettes Age Started Using Tobacco: 19; Age Quit Using Tobacco: 55; Cigarettes Per Day: 2 PPD when smoking; Second Hand Exposure: No; Do You Dip or Chew Tobacco: No; Hx Alcohol Use: No Hx Substance Use: No Preferred Language: Azerbaijani Communication Ability: Effective Visual Impairment: No Limitations Hearing Ability: Normal Woodworking Machine Offbearer Required: No Beliefs That Will Affect Care: None marital status: Current Living Situation: Spouse current occupational status: retired 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 ENT- oropharynx clear Neck- supple, no JVD. Lungs- clear to auscultation no wheezing or crackles. Heart- regular rhythm; no murmur, no gallop. Abdomen- normal bowel sounds, soft, nontender, no distension Extremities- Lower extremity edema present, no erythema seen. Neuro- alert, oriented x 2; PERRL, no facial palsy; no dysarthria; motor 5/5 bilaterally; no pronator drift, co ordination of movements normal, sensations intact Results & Data Results & Data Vital Signs (Past 12 Hours) Vital Signs Temp Pulse Pulse Resp BP BP Pulse Ox 02/28/24 06:31 100 H 02/28/24 06:00 98 H 20 124/85 94 02/28/24 04:00 103 H 20 103/74 98 02/28/24 02:53 98 02/28/24 02:49 96 H 02/28/24 02:34 36.8 C 101 H 20 122/74 97 O2 Del Method 02/28/24 06:31 02/28/24 06:00 Room Air 02/28/24 04:00 Room Air 02/28/24 02:53 Room Air 02/28/24 02:49 02/28/24 02:34 Room Air Diagnostic Findings Laboratory Results WBC 8.29 K/ul (4.8-10.8) 02/28/24 03:05 RBC 2.99 M/uL (4.70-6.10) L 02/28/24 03:05 Hgb 9.7 g/dl (14.0-18.0) L 02/28/24 03:05 Hct 29.3 % (42.0-52.0) L 02/28/24 03:05 MCV 98.0 fL (80.0-100.0) 02/28/24 03:05 MCH 32.4 pg (25.0-34.0) 02/28/24 03:05 MCHC 33.1 g/dL (32.0-36.0) 02/28/24 03:05 RDW Std Deviation 53.9 fL (36.4-46.3) H 02/28/24 03:05 RDW Coeff of Rosa 15.3 % (11.5-14.5) H 02/28/24 03:05 Plt Count 200 K/uL (130-400) 02/28/24 03:05 MPV 9.1 fL (9.4-12.4) L 02/28/24 03:05 Immature Gran % (Auto) 0.7 % 02/28/24 03:05 Neut % (Auto) 83.9 % 02/28/24 03:05 Lymph % (Auto) 5.9 % 02/28/24 03:05 Barbour % (Auto) 9.3 % 02/28/24 03:05 Eos % (Auto) 0.0 % 02/28/24 03:05 Baso % (Auto) 0.2 % 02/28/24 03:05 Neut # (Auto) 6.95 K/uL (1.40-6.50) H 02/28/24 03:05 Lymph # (Auto) 0.49 K/uL (1.20-3.40) L 02/28/24 03:05 [place]bour # (Auto) 0.77 K/uL (0.11-0.59) H 02/28/24 03:05 Eos # (Auto) 0.00 K/uL (0.00-0.50) 02/28/24 03:05 Baso # (Auto) 0.02 K/uL (0.00-0.20) 02/28/24 03:05 Immature Gran # (Auto) 0.06 K/uL (0.01-0.20) 02/28/24 03:05 Sodium 133 mmol/L (136-145) L 02/28/24 03:05 Potassium 4.2 mmol/L (3.5-5.1) 02/28/24 03:05 Chloride 99 mmol/L (98-107) 02/28/24 03:05 Carbon Dioxide 25 mmol/L (21-32) 02/28/24 03:05 Anion Gap 9 (3-11) 02/28/24 03:05 BUN 9 mg/dl (6-23) 02/28/24 03:05 Creatinine 0.75 mg/dl (0.6-1.4) 02/28/24 03:05 Est Cr Clr Drug Dosing Not Reportable 02/28/24 03:05 eGFR 94.11 02/28/24 03:05 BUN/Creatinine Ratio 12.0 (10-20) 02/28/24 03:05 Glucose 103 mg/dl (70-99(Fasting)) H 02/28/24 03:05 Calcium 8.1 mg/dl (8.6-10.3) L 02/28/24 03:05 Total Bilirubin 0.7 mg/dl (0.2-1.0) 02/28/24 03:05 AST 15 U/L (13-39) 02/28/24 03:05 ALT 8 U/L (7-52) 02/28/24 03:05 Alkaline Phosphatase 76 U/L (34-104) 02/28/24 03:05 B-Natriuretic Peptide 62 pg/ml (0-100) 02/28/24 03:05 Total Protein 6.5 gm/dl (6.0-8.3) 02/28/24 03:05 Albumin 3.6 gm/dl (3.4-5.0) 02/28/24 03:05 Globulin 2.9 gm/dl (2.5-4.0) 02/28/24 03:05 Albumin/Globulin Ratio 1.2 (0.9-2) 02/28/24 03:05 TSH 1.314 uIu/ml (0.300-4.500) 02/28/24 03:05 Urine Color Yellow 02/28/24 05:25 Urine Appearance Clear (Clear) 02/28/24 05:25 Urine pH 7.5 (4.5-7.5) 02/28/24 05:25 Ur Specific [place] 1.021 (1.000-1.030) 02/28/24 05:25 Urine Protein Trace (Negative) H 02/28/24 05:25 Urine Glucose (UA) Negative (Negative) 02/28/24 05:25 Urine Ketones 3+ (Negative) H 02/28/24 05:25 Urine Blood Negative (Negative) 02/28/24 05:25 Urine Nitrite Negative (Negative) 02/28/24 05:25 Urine Bilirubin Negative (Negative) 02/28/24 05:25 Urine Urobilinogen Negative (Negative) 02/28/24 05:25 Ur Leukocyte Esterase Negative (Negative) 02/28/24 05:25 Urine WBC (Auto) 0-5 /hpf (0-5) 02/28/24 05:25 Urine RBC (Auto) 0-2 /hpf (0-2) 02/28/24 05:25 U Hyaline Cast (Auto) 0-2 /lpf (0-2) 02/28/24 05:25 U Epithel Cells (Auto) 0-2 /hpf (0-2) 02/28/24 05:25 Urine Bacteria (Auto) None Seen (None Seen) 02/28/24 05:25 Adenovirus (PCR) Not Detected (NotDetected) 02/28/24 03:05 B. pertussis DNA (PCR) Not Detected (NotDetected) 02/28/24 03:05 B.parapertussis DNA PCR Not Detected (NotDetected) 02/28/24 03:05 C. pneumoniae DNA (PCR) Not Detected (NotDetected) 02/28/24 03:05 Coronavirus OC43 (PCR) Not Detected (NotDetected) 02/28/24 03:05 Coronavirus HKU1 (PCR) Not Detected (NotDetected) 02/28/24 03:05 Coronavirus 229E (PCR) Not Detected (NotDetected) 02/28/24 03:05 SARS-CoV-2 (PCR) Not Detected (NotDetected) 02/28/24 03:05 Coronavirus NL63 (PCR) Not Detected (NotDetected) 02/28/24 03:05 Human Metapneumovir PCR Not Detected (NotDetected) 02/28/24 03:05 Influenza Type A (PCR) Not Detected (NotDetected) 02/28/24 03:05 Influenza Type B (PCR) Not Detected (NotDetected) 02/28/24 03:05 M. pneumoniae (PCR) Not Detected (NotDetected) 02/28/24 03:05 Parainfluenza 1 (PCR) Not Detected (NotDetected) 02/28/24 03:05 Parainfluenza 2 (PCR) Not Detected (NotDetected) 02/28/24 03:05 Parainfluenza 3 (PCR) Not Detected (NotDetected) 02/28/24 03:05 Parainfluenza 4 (PCR) Not Detected (NotDetected) 02/28/24 03:05 RSV (PCR) Not Detected (NotDetected) 02/28/24 03:05 Entero/Rhino (PCR) Not Detected (NotDetected) 02/28/24 03:05 Impressions Chest X-Ray 02/28/24 02:45 EXAM: XR chest 1V portable CLINICAL HISTORY: Weakness, JMF. TECHNIQUE: X-ray images of the chest were obtained in posteroanterior (PA) and lateral projections. COMPARISON: Prior x-ray chests dated 02/09/2024 and 01/20/2024 were reviewed. FINDINGS: Pulmonary Parenchyma: Prominent bilateral broncho vascular markings. No evidence of consolidation, collapse, or focal opacities. No pulmonary nodules were identified. No evidence of pleural effusion or pleural thickening. Heart and Mediastinum: A possible left hilar opacity is seen. Heart size and shape are normal. No mediastinal widening or masses. Bony Thorax: Multiple sclerotic osseous lesions are seen at the thoracic spine seen previously are not conspicuous on AP view. Soft Tissues: Soft tissues overlying the chest wall are unremarkable. IMPRESSION: 1. Prominent bilateral broncho vascular markings, likely congestion. 2. Possible left hilar opacity is seen. 3. No interval changes could be detected, in comparison to prior X-rays. Electronically signed by Shayla Perry 02-28-2024 04:[address] 02/28/24 03:22 EXAM: CT head/brain wo con CLINICAL HISTORY: AMS, HX OF PROSTATE AND BONE CA. TECHNIQUE: An axial non-contrast CT scan of the brain was performed from the skull base to the high parietal region with multiple reformats. One of the following dose reduction techniques was utilized for this exam: Automated exposure control, adjustment of the mA and/or kV according to patient size, and use of iterative reconstruction. COMPARISON: CT Head dated 01/19/2024. FINDINGS: Brain Parenchyma: Stable diffuse chronic microvascular ischemic disease. Normal attenuation of the cerebellum, and brainstem. No evidence of established territorial infection. Ventricular System: Mild dilatation of the ventricular system, with diffuse periventricular hypodensity, likely due to diffuse chronic ischemic changes. Subarachnoid Spaces: Increased extra-axial subarachnoid spaces with prominent gyri and deep sulci of the brain, prominent cerebellar folia, basal cisterns, and Anthony fissures. Evidence of left lgqaqtd-vymanrka-lpkndwpx-occipital subdural chronic hematoma associated with mild defacement of the left lateral ventricle and a midline shift to the right side of about 5 mm. Cerebellum and Brainstem: Normal size and signal. No masses, lesions, or areas of abnormal signal. Orbits: Normal appearance of the globes, optic nerves, and extraocular muscles. No evidence of orbital masses or abnormal signals. Sinuses: Clear paranasal sinuses. No evidence of sinusitis or mucosal thickening. Mastoid Air Cells: Clear mastoid air cells. No evidence of mastoiditis. Skull: No acute calvarial fracture. IMPRESSION: 1. Newly seen left vvscxsg-sliqmqwa-sgpxvtcx-occipital subdural chronic hematoma associated with mild defacement of the left lateral ventricle and a midline shift to the right side of about 5 mm. 2. Stable diffuse Brain Atrophic changes 3. Stable diffuse chronic microvascular ischemic disease. 4. MRI brain with contrast may be helpful for further evaluation in keeping with history. [facility] was called at [phone] at 4:28 AM MACHINE III COREMAKER on 02/28/2024, and results were verbally communicated with Maria Victoria Conte. Electronically signed by Shayla Perry 02-28-2024 05:30 AM ECG Additional Comments: ECG. Normal sinus rhythm rate of 96. Left anterior fascicular block. No significant change was found. Code Status & VTE Plan VTE Prophylaxis Plan VTE Prophylaxis will be ordered: Yes
[2024-02-28] MEDS ORDERED: ACETAMINOPHEN 325 MG TAB PO PRN (09:12)
[2024-02-28] MEDS ORDERED: NITROGLYCERIN SL 0.4 MG/TAB TAB SL PRN (09:12)
[2024-02-28] MEDS ORDERED: oxyCODONE HCL IR 5 MG TAB (IMMEDIATE RELEASE) PO PRN (09:12)
[2024-02-28] MEDS ORDERED: NON-FORMULARY MEDICATION (Budesonide-Glycopyr-Formoterol [Breztri Aerosphere] 160-9-4.8 mc INH SCH (09:12)
[2024-02-28] MEDS: metroNIDAZOLE 500 MG/100 ML BAG IV SCH (10:13)
--- NOTE | 2024-02-28 10:21 | Ultrasound Report ---
US venous doppler LE BI CLINICAL HISTORY: b/l lower ext edema. dvt? TECHNIQUE: Bilateral lower extremity real-time compression venous ultrasound with Color Doppler imagi ng. Utilizing real-time ultrasonic imaging multiple real time high-resolution ultrasonic images with compression and noncompression maneuvers of the deep venous system in addition to color doppler imagi ng were performed from the common femoral vein through the proximal calf veins. COMPARISON: None available at the time of this dictation. FINDINGS/IMPRESSION: No deep venous thrombus, there is normal compressibility of the deep venous system from the common fe moral vein through the proximal calf veins. No superficial venous thrombosis is identified. ACT 112: Negative or not required by law. Electronically signed by: Sachin Shaikh M.D. 02/28/2024 10:20 AM
[2024-02-28 10:26] VITALS: O2SAT 100
[2024-02-28] MEDS: CHOLECALCIFEROL 25 MCG (1000 UNITS) TAB PO SCH (10:39)
[2024-02-28] MEDS: TERAZOSIN HCL 5 MG CAP PO SCH (10:39)
[2024-02-28] MEDS: buPROPion XL 300 MG TABCR PO SCH (10:39)
[2024-02-28] MEDS: ASCORBIC ACID 500 MG TAB PO SCH (10:39)
[2024-02-28] MEDS: CALCIUM CARBONATE 1250MG TAB PO SCH (10:39)
[2024-02-28] MEDS: CYANOCOBALAMIN (B-12) 500 MCG TABLET PO SCH (10:40)
[2024-02-28] MEDS: PANTOprazole 40 MG TAB PO SCH (10:40)
[2024-02-28] MEDS: MAGNESIUM OXIDE 400 MG TAB PO SCH (10:40)
[2024-02-28] MEDS: PROPRANOLOL HCL 20 MG TAB PO SCH (10:40)
[2024-02-28] MEDS: POTASSIUM CHLORIDE 10 MEQ TABCR PO SCH (10:40)
[2024-02-28] MEDS: MULTIVITAMIN TAB PO SCH (10:40)
[2024-02-28] MEDS: hydrOXYzine HCl 25 MG TAB PO PRN (10:40)
[2024-02-28] MEDS: FLUTICASONE FUROATE 200MCG 14 PUFFS/INHALER INH SCH (10:41)
[2024-02-28] MEDS: D5W AND LACTATED RINGERS 1,000 ML IV SCH (10:41)
--- OUTSIDE RECORDS SUMMARY | 2024-02-28 11:05 | External Medical Summary | Continuity of Care Document ---
Author Name Unknown Organization [place] Address [address] [place] [address] Phone [phone] Problems Active Problems Provider Date Vesicular eczema of hands and/or feet ANAT Mcclain Onset: 01/09/2017 Nocturia ANAT Apodaca Onset : 01/09/2017 Malaise and fatigue Robbie Carter PA-C Onset: 02/25/2017 Mononeuritis Robbie Carter PA-C Onset: Degeneration of lumbar inter vertebral disc Robbie Carter PA-C Onset: 02/25/2017 Spasm Robbie Carter PA-C Onset: Atherosclerosis of arteries of the extremities Sin Benz JR, MD Onset: 08/26/2017 Supraventricular tachycardia Ons et: Social History Type Date Description Comments Sex Male Cigarette Use 01/29/2024 Quit - Age 55 Tobacco Use Reviewed: 04/26/23 Never Smoked Cigars Tobacco Use Reviewed: 04/26/23 Never Smoked A Pipe Smoking Status Reviewed: 01/29/24 Never Smoked A Pipe Smokeless Tobacco 04/26/2023 Never Used Smokeless To bacco ETOH Use 01/09/2017 Occasionally consumes beer Recreational Drug Use Denies Drug Use Allergies and adverse reactions Description No Known Drug Allergies Medications Active Medications SIG Qnty Indications Order ing Provider Date Phospha 250 [id number] Tablets Take 1 tablet by mouth four times a day for 3 days. 12traci Maguire MD 02/03/2024 Oxycodone HCL5mg Tablets 1 by mouth twice daily as needed - for continued therapy 60tawill Maguire MD 09/02/2023 Magnesium Qbpioje832ax Capsules 2 by mouth every day 90caps Rita Maguire MD 07/01/2023 Terazosin HCL5mg Capsules Take 1 capsule by mouth once daily 90caps Rita Maguire MD 04/26/2023 Sertraline QJX641fi Tablets 1 by mouth every night 90tabs Rita Maguire MD 02/17/2023 Clotrimazole/Betametha sone Dipropionate1-0.05% Cream apply to abdomen, back perineum twice daily every day as needed 90gm Rita Maguire MD 11/22/2022 Breztri Iyzsjllixz883-0-1.8mcg /Act Aerosol Inhale 2 Puffs Twice Daily 33units Rita Maguire MD 08/22/2022 NystatinPowder apply to the affected area 2-3 times a day 1units B35.6 Rita Maguire MD 06/21/2022 Clotrimazole/Betametha sone Dipropionate1-0.05% Cream apply every day as needed to hands/legs/rash 90gm Rita Maguire MD 04/18/2022 Hydroxyzine JPQ14rv Tablets take 1 to 2 tablets by mouth at bedtime as needed 180tabs Rita Maguire MD 04/18/2022 Atorvastatin Fidahvg86po Tablets Take 1 tablet by mouth in the evening 90tabs Rita Maguire MD 01/17/2022 Wellbutrin WQ592oj Tablets ER 24HR 1 by mouth every day for mood 90tabs Rita Maguire MD [address] Take 1 Capsule By Mouth Once Daily For Stomach 90caps Rita Maguire MD 11/22/2021 Tamsulosin HCL0.4mg Capsules 1 by mouth every evening for prostate 90caps Rita Maguire MD 02/13/2021 Propranolol KEA33pg Tablets Take 1 tablet by mouth twice daily 180tabs Rtia Maguire MD 02/13/2021 Luwxlr66xj Tablets Take 3 capsules once daily 360tabs Rita Maguire MD Multi Vitamin DailyTablets 1 by mouth every day Unknown Tylenol 8 Hour Arthritis Bvii229ed Tablets ER take one tablet orally every 8 hours as needed. Unknown Complete Prostate Health FormulaTablets 1 by mouth every day Unknown Vitamin D High Cszfvxm84txv (1000 Ut) Capsules 1 every day Unknown Potassium Citrate(Elemental K)99mg Capsules Unknown Calcium 600 High Fqyflti739rd Tablets 1 by mouth every day Unknown Vitamin C Immune Thydvw031kr Chewtabs 2 by mouth every day Unknown Vitamin B12 SS6921jxf Tablets ER 1 by mouth every day Unknown Sihgvbibqbl09mi Tablets take 1 tablet by mouth everyday at bedtime 90tabs Rita Maguire MD Pvejgwnrip33je Tablets Take 1 Tablet By Mouth In The Morning Nicolasa Corea M.D. History Medications Phospha 250 [id number] Tablets Take 2 tablets by mouth four times a day for 3 days. Unknown 01/22/2024 - 01/25/2024 Doxycycline Fohlnvn143am Tablets take 1 tablet by mouth twice a day for 10 days 20tabs Unknown 01/19/2024 - 01/29/2024 Pxwiytak399wz Capsules take 1 capsule by mouth twice a day for 10 days 20caps Unknown 01/19/2024 - 01/29/2024 Medications Administered in Office Medication SIG Qnty Indications Ordering Provider Date Injection Kenalog 10 MG NDC [id number] Theo Anderson-C 04/26/2023 Injection Kenalog 10 MG NDC [id number] Theo Anderson-C 11/22/2022 Injection Kenalog 10 MG NDC [id number] Theo Anderson-C 03/28/2022 Injection Vitamin B-12 Up To 1000 mcgInjection Rusty Lewis PA-C 11/22/2021 Injection Vitamin B-12 Up To 1000 mcgInjection ANAT Hernandez 10/11/2021 Injection Vitamin B-12 Up To 1000 mcgInjection Rusty Lewis PA-C 10/03/2021 Injection Vitamin B-12 Up To 1000 mcgInjection Rusty Lewis PA-C 09/27/2021 Injection Vitamin B-12 Up To 1000 mcgInjection Rusty Lewis PA-C 09/20/2021 Injection Vitamin B-12 Up To 1000 mcgInjection Rusty Lewis PA-C 09/12/2021 Immunizations CPT Code Status Date Vaccine Lot # [id number] Given 12/31/2023 Tdap (Tetanus, diphtheria & acel. pertussis) Adacel or Boostrix [id number] 02313 Given 12/10/2023 Covid-19 Vaccine Pfizer A ge 12+ 69737 Given 12/10/2023 Pneumococcal Conjugate-Pr evnar 20 [id number] 91337 Given 12/10/2023 Influenza Vac, Split, Preservative Free High Dose Age 65 & > 20014 Given 05/13/2023 Covid-19 Vaccine Pfizer A ge 12+ 82940 Given 05/13/2023 Shingrix [id number] 10971 Given 03/07/2023 Shingrix [id number] 07380 Given 03/07/2023 RSV Arexvy Vacc Pref Recombinant Adjuvanted EMR Only U-FLU Given 12/20/2022 Influenza,Unspecified 371 600 72551 Given 12/20/2022 Influenza Vaccine High Do se 0.5ML Age 65 & > [id number] 89403 Given 01/18/2022 Pfizer Sars-Cov -2 (Covid-19) Vx, BiValent Booster, 12+ 14225 Given 11/22/2021 Influenza Vaccine High Do se 0.5ML Age 65 & > [id number] U-FLU Given 11/22/2021 Influenza,Unspecified 12536 Given 12/30/2020 Pfizer Sars-Cov -2 (Cov-19) vacc 30mcg/0.3ML 12Y+ EMR Doc Only 51706 Given 05/18/2020 Pfizer Sars-Cov -2 (Cov-19) vacc 30mcg/0.3ML 12Y+ EMR Doc Only 15366 Given 04/27/2020 Pfizer Sars-Cov -2 (Cov-19) vacc 30mcg/0.3ML 12Y+ EMR Doc Only 06353 Given 10/31/2018 Pneumococcal Conjugate-Pr evnar 13 [id number] Refused 11/22/2022 Influenza Virus Vaccine, Quadrivalent (Cciiv4), Derived From Cell 48853 Refused 04/18/2022 Pneumococcal Conjugate-Pr evnar 20 [id number] Refused 04/18/2022 Shingrix [id number] Refused 04/18/2022 Moderna Sars-Co v-2 (Covid-19) Vaccine, BiValent Booster 12y+ 88065 Refused 01/16/2021 Pneumococcal Vaccine/Pneu movax 23 [id number] Refused 01/16/2021 Influenza Vaccine High Do se 0.5ML Age 65 & > Vital Signs Date Vital Result Comment 01/29/2024 12:41pm BP Systolic 130 mmHg BP Diastolic 78 mmHg Body Temperature 97.3 F Heart Rate 71 /min Respiratory Rate 18 /min Weight 193.38 lb Weight 87.715 kg Height 70 inches 5'10" BMI (Body Mass Index) 27.7 kg/m2 O2 % BldC Oximetry 93 % [place] Body Weight 166 lb 11/12/2023 9:02am BP Systolic 120 mmHg BP Diastolic 70 mmHg Body Temperature 98.1 F Heart Rate 72 /min Respiratory Rate 18 /min Weight 198.50 lb Weight 90.040 kg O2 % BldC Oximetry 96 % Results Test Acquired Date Facility Test Result H/L Range Note BMP 01/29/2024 [facility] [address] [place] [address] Glucose 82 mg/dL 70-110 BUN 12 mg/dL 6-25 Creatinine 0.8 mg/dL 0.7-1.3 Sodium 141 mEq/L 135-145 Potassium 3.7 mEq/L 3.5-5.0 Chloride 105 mEq/L 95-107 Co-2 27 mEq/L 24-31 Calcium 8.1 mg/dL Low 8.5-10.6 GFR 100 ML/MIN/1.7 3SQM >60 Laboratory test finding 01/29/2024 [facility] [address] [place] [address] [phone] Phosphorus 2.1 mg/dL Low 2.5-4.8 CBC No Diff 01/29/2024 [facility] [address] [place] [address] WBC 5.9 10^3/M3 3.1-9.2 RBC 3.07 10^6/M3 Low 4.00-5.80 HGB 10.2 GR/DL Low 12.5-17.5 HCT 31.2 % Low 37.5-52.5 MCV 101.8 CUMICR High 82.6-95.8 MCH 33.4 PICOGR High 27.9-32.9 MCHC 32.8 % 32.6-35.4 RDW 16.1 % High 11.4-14.6 PLT 164 10^3/M3 140-350 MPV 8.5 CUMICR 7.0-10.6 Manual Diff 01/29/2024 [facility] [address] [place] [address] [phone] Seg 84 % High 45-75 Lymph 10 % Low 20-45 [place] 7 % 0-10 Eosin 0 % 0-6 Baso 0 % 0-2 RBC Morphology NORMAL Neut # 5.0 10^3/M3 1.5-8.0 Lymph # 0.6 10^3/M3 Low 0.8-3.2 [place] # 0.4 10^3/M3 0.0-0.8 Eosin # 0.0 10^3/M3 0.0-0.4 Baso # 0.0 10^3/M3 0.0-0.2 Urinalysis 11/12/2023 [facility] [address] [place] [address] [phone] Color COMMENT 1 Appearance COMMENT Clear Spec.Grav. COMMENT 1.005-1.025 Leukocytes COMMENT Negative Nitrite COMMENT Negative PH COMMENT 6.0-7.5 Protein COMMENT Negative Urine Glucose COMMENT Negative Ketone COMMENT Negative Urobilinogen COMMENT E.U./DL Normal Bilirubin COMMENT Negative Blood COMMENT Negative WBC-U COMMENT /HPF 0-5/HPF RBC-U COMMENT /HPF 0-5/HPF Bacteria COMMENT None Seen Squamous COMMENT /HPF 0-5/HPF Manual Diff 11/12/2023 [facility] [address] [place] [address] [phone] Seg 57 45-75 Lymph 18 Low 20-45 [place] 22 High 0-10 Eosin 3 0-6 Baso 1 0-2 RBC Morphology NORMAL CBC No Diff 11/12/2023 [facility] [address] [place] [address] WBC 3.7 10^3/M3 3.1-9.2 RBC 3.73 10^6/M3 Low 4.00-5.80 HGB 12.6 GR/DL 12.5-17.5 HCT 37.9 % 37.5-52.5 MCV 101.6 CUMICR High 82.6-95.8 MCH 33.8 PICOGR High 27.9-32.9 MCHC 33.2 % 32.6-35.4 RDW 15.7 % High 11.4-14.6 PLT 184 10^3/M3 140-350 MPV 7.5 CUMICR 7.0-10.6 Laboratory test finding 11/12/2023 [facility] [address] [place] [address] [phone] Sed Rate 24 High 0-15 C-Reactive Prot COMMENT mg/dL 0.000-0.700 Tibc 11/12/2023 [facility] [address] [place] [address] Tibc COMMENT g /dL 260-400 Transferrin COMMENT mg/dL 200-400 Iron Panel([employer]) 11/12/2023 [facility] [address] [place] [address] Iron COMMENT g /dL 45-140 % Saturation COMMENT % Low 30-35 2 Laboratory test finding 11/12/2023 [facility] [address] [place] [id number] Psa2 COMMENT ng/mL 0.0-4.0 Hba1c 11/12/2023 [facility] [address] [place] [id number] A1c 5.30 % 4.70-6.50 3 Urinalysis,Cul t If Indicated 11/12/2023 [facility] [address] [place] [id number] [phone] RFLX Culture COMMENT Laboratory test finding 11/12/2023 [facility] [address] [place] [address] [phone] TSH COMMENT uIU/mL 0.50-6.00 Lipid 11/12/2023 [facility] [address] [place] [address] Cholesterol COMMENT mg/dL 0-200 4 Triglyceride COMMENT mg/dL 0-150 5 HDLD COMMENT mg/dL See Comment 6 Measured LDL COMMENT mg/dL 0-130 7 Calc VLDL COMMENT mg/dL See Comment 8 Chol/HDL COMMENT RATIO See Comment 9 Non-HDL COMMENT mg/dL See Comment 10 Comp. Met 11/12/2023 [facility] [address] [place] [address] Glucose COMMENT mg/dL 70-110 11 BUN COMMENT mg/dL 6-25 Creatinine COMMENT mg/dL 0.7-1.3 Sodium COMMENT mEq/L 135-145 Potassium COMMENT mEq/L 3.5-5.0 Chloride COMMENT mEq/L 95-107 Co-2 COMMENT mEq/L 24-31 Alk Phos COMMENT IU/L 43-122 Alt(SGPT) COMMENT IU/L 10-40 Ast(Sgot) COMMENT IU/L 3-42 T.Bilirubin COMMENT mg/dL 0.1-1.3 Calcium COMMENT mg/dL 8.5-10.6 Tot.Protein COMMENT g/dL 5.8-8.0 Albumin COMMENT g/dL 3.0-5.2 Globulin COMMENT g/dL 2.0-3.4 GFR COMMENT ML/MIN/1.7 3SQM Low >60 12 1 ORDER PLACED, PER DOCUMENTATION (PER COLORED PAPER) SPECIMEN FOR TESTING NOT ACQUIRED 11/13/23 LM 2 CANNOT CALCULATE %SAT WHEN IRON < 10 3 MEAN GLUCOSE IN mg/d L/A1c% POOR CONTROL FAIR CONTROL GOOD CONTROL EXCELLENT CONTROL 360-14 210-9 180-8 120-6 330-13 150-7 90-5 300-12 270-11 240-10 4 CHOLESTEROL Less than 200mg/dl Low risk 201-239 mg/dl Borderline risk Equal to or greater 240mg/dl High risk 5 TRIGLYCERIDES Less than 150mg/dl Normal 150-199mg/dl Borderline 200-499mg/dl High Greater than 500mg/dl Very High 6 HDL <40mg/dl Elevated Risk 41-59mg/dl Risk >=60mg/dl Least Risk 7 LDL <100mg/dl Optimal 100-129mg/dl Near Optimal 130-159mg/dl Borderline High 160-189mg/dl High >=190 Very High 8 VLDL Less than 30mg/dl Normal 9 CHOL/HDL <4.0 Optimal 4.0-5.0 Borderline >6.0 High Risk 10 NON-HDL 30mg/dl higher than LDL Target 11 PER Emi SUMNER LEFT IN FRIDGE UNSPUN. 08/14/23 12 CANNOT CALCULATE RATIO WHEN CREATININE < 0.2 Procedures Date Code Description Status 01/29/2024 89030 Venipuncture Routine [facility] ed 01/29/2024 1111F D/C Medications Reconciled W/Current Medications In Outpt MR Completed 01/23/2024 1111F D/C Medications Reconciled W/Current Medications In Outpt MR Completed 11/12/2023 92083 Remove Impact Cerumen Irriga tion Completed 11/12/2023 84139 Venipuncture Routine [facility] ed 11/12/2023 3078F PVRP Diastolic BP <80 mmHg C ompleted 11/12/2023 3074F PVRP Systolic BP <130 mmHg C ompleted Medical Devices Description No Information Available Encounters Type Date Location Provider Dx Diagnosis Office Visit 01/29/2024 1:00p Ke Maguire MD J20.9 Acute bronchi tis, unspecified D64.9 Anemia, unspecified E87.8 Oth disorders of erendira ctrolyte and fluid balance, NEC Office Visit 11/12/2023 9:15a JOSE SchwartzC E78.5 Hyperlipidemia, unspecified F33.1 Major depressive dis order, recurrent, moderate R73.01 Impaired fasting glu cose N40.0 Benign prostatic hyp erplasia without lower urinry tract symp D64.9 Anemia, unspecified I10 Essential (primary) hypertension H61.23 Impacted cerumen, bi lateral Assessments Date Code Description Provider 01/29/2024 J20.9 Acute bronchitis, unspecifie d Rita Maguire MD 01/29/2024 D64.9 Anemia, unspecified Rita Maguire MD 01/29/2024 E87.8 Electrolyte imbalance NOS Frankie Maguire MD 01/09/2024 I10 Essential (primary) hyperten morena MontoyaNargis Lewis, PA-C 01/09/2024 J44.9 Chronic obstruct khadra pulmonary disease, unspecified Rusty Chasity Walters[place], PA-C 01/09/2024 F33.1 Major depressive disorder, recurrent, moderate Rusty Chasity Laz[place], PA-C 11/12/2023 E78.5 Hyperlipidemia, unspecified Rusty Chasity [place], PA-C 11/12/2023 F33.1 Major depressive disorder, recurrent, moderate Rusty Chasity [place], PA-C 11/12/2023 R73.01 Impaired fasting glucose Shahzad trisha eLwis, PA-C 11/12/2023 N40.0 Benign prostatic hyperplasia without lower urinary tract symptoms Rusty Chasity [place], PA-C 11/12/2023 D64.9 Anemia, unspecified Rusty Jan Barillas [place], PA-C 11/12/2023 I10 Essential (primary) hyperten morena Ojeda Chasity [place], PA-C 11/12/2023 H61.23 Impacted cerumen, bilateral Rusty Chasity [place], PA-C 11/09/2023 E78.5 Hyperlipidemia, unspecified Rusty Chasity [place], PA-C 11/09/2023 I10 Essential (primary) hyperten morena MontoyaNargis Laz[place], PA-C 11/09/2023 F33.1 Major depressive disorder, recurrent, moderate Rusty Chasity [place], PA-C 10/09/2023 I10 Essential (primary) hyperten morena Ojeda Chasity [place], PA-C 10/09/2023 J44.9 Chronic obstruct khadra pulmonary disease, unspecified Rusty Chasity [place], PA-C 10/09/2023 F33.1 Major depressive disorder, recurrent, moderate Rusty Chasity [place], PA-C 09/08/2023 I10 Essential (primary) hyperten morena Rusty Lewis PA-C 09/08/2023 J44.9 Chronic obstruct khadra pulmonary disease, unspecified Rusty Lewis PA-C 09/08/2023 F33.1 Major depressive disorder, recurrent, moderate Rusty Lewis PA-C Plan of Treatment Future Appointment(s):* 04/28/2024 9:15 am - Rita Maguire MD at [place] 01/29/2024 - Rita Maguire MD* J20.9 Acute bronchitis, unspecified* Comments: * completed the course of abx conservative management * Recommendations:* Symptomatic care. Call if worsening or no improvement. * D64.9 Anemia, unspecified* Comments:* Repeat labs ordered * E87.8 Electrolyte imbalance NOS* Comments:* recommended to take Phosphate supplement will order repeat labs Functional Status Description No Information Available Mental Status Description No Information Available Referrals Description No Information Available
[2024-02-28 11:17] VITALS: BP 121/71; PULSE 96; RESP 31
[2024-02-28] MEDS ORDERED: ALPRAZolam 0.25 MG TABLET PO ONE (11:21)
[2024-02-28] MEDS: UMECLIDINIUM/VILANTEROL 62.5/25MCG 7 PUFFS/INHALER INH SCH (11:33)
--- NOTE | 2024-02-28 11:46 | Pharmacy Report ---
ED Pharmacist Culture FollowUP - Culture Follow Up Note Date of Service: February 28, 2024
--- NOTE | 2024-02-28 11:50 | Neurology Consultation ---
Date of Consultation February 28, 2024 Assessment & Plan (1) Subdural hematoma, chronic: John Gama is a 73 yo M presenting with new but chronic appearing L sided SDH, not present on 01/18 in the setting of frequent falls. Discussed at length with the patients and son, his more recent cognitive decline can be reasonably attributed to the SDH rather than the more chronic memory issues, likely mild dementia. They would like to consider a neurosurgical evaluation and therefore I have arranged transfer to [facility]. Would continue to pursue MRI awaiting bed availability for the transfer. Telehealth Consultation Telehealth Information Telehealth Information: I performed this visit using a real-time telehealth connection between my location and the patients location ([facility]). After connecting through interactive tele-video, patient was identified by name and date of and/or wristband check.Patient (or authorized healthcare inside sales representative) was informed that this was a telemedicine visit and it was being conducted confidentially over secure lines. My office door was closed and no one else was present in the room with me.Patient (or authorized healthcare inside sales representative) provided consent to proceed with the visit, expressed an understanding of privacy and security of the telemedicine visit, and gave permission to have a hospital inside sales representative in the room in order to assist with the visit and to conduct portions of the visit, as needed. I informed the patient (or authorized healthcare inside sales representative) that I reviewed their record and presented the opportunity for them to ask any questions regarding the visit today. The patient agreed to participate. History of Present Illness Reason for Consultation: Cognitive concerns Requesting Physician: Dr. Waters Attending Physician: Osvaldo Dunbar MD History of Present Illness John Gama is a 73 yo M presenting with failure to thrive at home with his and son. The patient has a history of prostate CA on chemo and s/p radiation. He has had ongoing concerns with his memory for the past few months and has had frequent falls at home including hitting his head. His family reports they noticed a significant decline after the presentation to [facility] on 01/18. A CT at that time was negative. Since then he has been difficult to manage at home, combative, and forgets or refuses to take his pills which include treatment for his cdiff. They also report that he has been holding his head and complains of headache but today he tells me that he never had a headache, he also denies falling as described by the family. No focal weakness or numbness otherwise but does have generalized weakness. No loss of consciousness or concern for seizure activity. Allergies Allergy/AdvReac Type Severity Reaction Status Date / Time No Known Allergies Allergy Verified 11/29/23 08:04 Home Medications Medication Instructions Recorded Confirmed Type ascorbic acid (vitamin C) 1,000 mg 1 g PO BID 02/28/24 02/28/24 History tablet (Vitamin C) atorvastatin 40 mg tablet 40 mg PO HS 02/28/24 02/28/24 History budesonide 160 mcg-glycopyr 9 2 inh inhalation BID 02/28/24 02/28/24 History mcg-formot 4.8 mcg/actuation HFA inhaler (Breztri Aerosphere) bupropion HCl 300 mg 24 hr tablet, 300 mg PO DAILY 02/28/24 02/28/24 History extended release calcium carbonate 600 mg PO DAILY 02/28/24 02/28/24 History cholecalciferol (vitamin D3) 25 25 mcg PO DAILY 02/28/24 02/28/24 History mcg (1,000 unit) chewable tablet (Vitamin D3) cyanocobalamin (vitamin B-12) 2,000 mcg PO DAILY 02/28/24 02/28/24 History 1,000 mcg tablet enzalutamide 40 mg capsule (Xtandi) 160 mg PO DAILY 02/28/24 02/28/24 History fexofenadine 180 mg tablet 180 mg PO DAILY PRN Allergic 02/28/24 02/28/24 History Symptoms furosemide 20 mg tablet 20 mg PO DAILY 02/28/24 02/28/24 History hydroxyzine HCl 25 mg tablet 50 mg PO HS PRN Anxiety 02/28/24 02/28/24 History leuprolide (3 month) 22.5 mg (3 22.5 mg IM UD 02/28/24 02/28/24 History month) intramuscular syringe kit (Lupron Depot) magnesium 250 mg tablet 250 mg PO DAILY 02/28/24 02/28/24 History multivitamin 1 tab PO DAILY 02/28/24 02/28/24 History omeprazole 40 mg capsule,delayed 40 mg PO DAILY 02/28/24 02/28/24 History release oxycodone 5 mg tablet 5 mg PO QID PRN Pain, Severe 02/28/24 02/28/24 History potassium 99 mg tablet 99 mg PO DAILY 02/28/24 02/28/24 History propranolol 20 mg tablet 20 mg PO BID 02/28/24 02/28/24 History sertraline 100 mg tablet 100 mg PO HS 02/28/24 02/28/24 History tamsulosin 0.4 mg capsule 0.4 mg PO HS 02/28/24 02/28/24 History terazosin 10 mg capsule 10 mg PO DAILY 02/28/24 02/28/24 History Patient History Medical History GARVIN (dyspnea on exertion) Depression Hx of cardiac arrhythmia Concern for a.fib during preop evaluation prior to planned EGD/colonoscopy 06/2022 at [facility]. Subsequently seen by [facility] cardio 07/05/22, low suspicion for a. fib > 14 [facility] recommended/noted no evidence of a. fib Occasional tremors COPD (chronic obstructive pulmonary disease) Occlusion of right internal carotid artery HTN (hypertension) Anxiety Acid reflux Seasonal allergies Kidney stone hx Poor historian Prostate cancer metastatic to bone 05/2022 prostate- oral denies any radiation/chemo Osteoarthritis Chronic back pain Spinal stenosis Globus sensation Pt denies Surgical History History of lumbar fusion H/O cardiac radiofrequency ablation For SVT on 12/11/22 - Follows [facility] Cardio H/O cystoscopy Cystoscopy, Left Ureteronephroscopy, Laser destruction, Basket Extraction of the Stone, Insertion Stent Catheter History of colonoscopy History of appendectomy Family History Sister Medical history unknown Pt had 8 sisters - 1 in MVA and 7 still living - none with cancer Mother , in her 80s Dementia Diabetes Myocardial infarction Hypertension Father , in his 80s Cancer Pt uncertain of type Brother No problems noted. Brother No problems noted. Brother No problems noted. Brother No problems noted. Brother No problems noted. Son No problems noted. Son No problems noted. Son No problems noted. Son No problems noted. Denies family history of Crohn's disease Colorectal cancer Ulcerative colitis Social History Smoking Status: Former smoker Tobacco Type: Cigarettes Age Started Using Tobacco: 19; Age Quit Using Tobacco: 55; Cigarettes Per Day: 2 PPD when smoking; Second Hand Exposure: No; Do You Dip or Chew Tobacco: No; Hx Alcohol Use: No Hx Substance Use: No Preferred Language: Latvian Communication Ability: Effective Visual Impairment: No Limitations Hearing Ability: Normal Nutrition Aides Teacher Required: No Beliefs That Will Affect Care: None marital status: Current Living Situation: Spouse current occupational status: retired 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 Oriented to person, place, and time. Fluent with mild aphasia in spontaneous speech, specifically dysfluency and difficulty with the kitchen picture. Comprehension intact. Affect appropriate. Cranial Nerves: II: Reads NIHSS cards, pupils 3/3 to 2/2, romano grossly intact. III/IV/: Versions intact without nystagmus, no gaze preference. V: Facial sensation symmetric to light touch VII: Facial expression symmetric VIII: Hearing intact to voice IX/X: Palate elevates symmetrically XI: Shoulder shrug symmetric XII: Tongue midline Motor: Strength was symmetric and antigravity throughout. Pronator drift was absent. There were no abnormal movements. Coordination: Finger to nose was intact. Reflexes: Unable to assess over telemedicine Results & Data Vital Signs (Past 12 Hours) Vital Signs Temp Pulse Pulse Resp BP BP Pulse Ox 02/28/24 10:33 96 H 100 02/28/24 10:30 121/71 02/28/24 10:27 87 31 H 100 02/28/24 10:25 130/80 02/28/24 10:25 94 H 18 130/80 100 02/28/24 09:39 87 28 H 02/28/24 09:30 101 H 18 02/28/24 09:01 129/80 02/28/24 09:00 104 H 20 02/28/24 08:45 98 H 18 134/78 96 02/28/24 08:42 134/78 02/28/24 08:42 91 H 99 02/28/24 08:36 95 H 100 02/28/24 08:00 99 H 18 92 12/20/24 08:00 127/65 02/28/24 07:55 137/80 02/28/24 06:31 100 H 02/28/24 06:00 98 H 20 124/85 94 02/28/24 04:00 103 H 20 103/74 98 02/28/24 02:53 98 02/28/24 02:49 96 H 02/28/24 02:34 36.8 C 101 H 20 122/74 97 O2 Del Method O2 Flow Rate 02/28/24 10:33 Nasal Cannula 3.5 02/28/24 10:30 02/28/24 10:27 Nasal Cannula 3.5 02/28/24 10:25 02/28/24 10:25 Nasal Cannula 3 02/28/24 09:39 02/28/24 09:30 02/28/24 09:01 02/28/24 09:00 02/28/24 08:45 Nasal Cannula 3.5 02/28/24 08:42 02/28/24 08:42 Nasal Cannula 3.5 02/28/24 08:36 Nasal Cannula 3.5 02/28/24 08:00 Nasal Cannula 3.5 02/28/24 08:00 02/28/24 07:55 02/28/24 06:31 02/28/24 06:00 Room Air 02/28/24 04:00 Room Air 02/28/24 02:53 Room Air 02/28/24 02:49 02/28/24 02:34 Room Air Laboratory Results Abnormal lab results 02/28/24 02/28/24 Range/Units 03:05 05:25 RBC 2.99 L (4.70-6.10) M/uL Hgb 9.7 L (14.0-18.0) g/dl Hct 29.3 L (42.0-52.0) % RDW Std Deviation 53.9 H (36.4-46.3) fL RDW Coeff of Rosa 15.3 H (11.5-14.5) % MPV 9.1 L (9.4-12.4) fL Neut # (Auto) 6.95 H (1.40-6.50) K/uL Lymph # (Auto) 0.49 L (1.20-3.40) K/uL Will # (Auto) 0.77 H (0.11-0.59) K/uL Sodium 133 L (136-145) mmol/L Glucose 103 H (70-99(Fasting)) mg/dl Calcium 8.1 L (8.6-10.3) mg/dl Urine Protein Trace H (Negative) Urine Ketones 3+ H (Negative) Diagnostic Findings CT head - New, chronic appearing L SDH
[2024-02-28] MEDS: VANCOMYCIN HCL 125 MG/2.5ML SOLN PO SCH (12:37)
[2024-02-28] MEDS: CHERRY SYRUP 5 ML UDP PO SCH (12:37)
[2024-02-28] MEDS: HALOPERIDOL LACTATE 5 MG/ML 1 ML VIAL IM STA ×2 (13:51→14:45)
--- NOTE | 2024-02-28 13:54 | Discharge Summary ---
Date of Service February 28, 2024 Admission HPI Per Admitting Provider 73-year-old male with past medical history significant for PSVT status post ablation, valvular heart disease(mild MR, moderate TR) peripheral vascular disease, hypertension, hyperlipidemia, metastatic prostate cancer s/p radiation and as per son currently chemo is held for last 1 month and there is a plan to start new pills, BPH, GERD, chronic anemia, past tobacco abuse and recent diagnosis of C. difficile who lives at home with his was brought in by his son because of weakness, dehydration, poor p.o. intake and also not taking his pills. Patient is alert and oriented x 2. Do not know current dates which is usual for him as per son. Son is also worried that patient may getting dementia as he is getting confused for last 6 months and want to know whether he has dementia. Since patient was started on chemo he is having a lot of chills. Has nausea but no vomitings. Having lot of diarrhea. Micturating okay. Was not taking his pills and son thinks patient is not keen to take his medications. Has some swelling the legs as he was not eating his Lasix. Usually ambulates without support but somewhat wobbly but lately not ambulating because of weakness. Patient denies any headache. Denies chest pain. Denies neck pain or back pain. Denies abdominal pain. Denies shortness of breath. Son was also worried that patient may have having brain mets and CT scan was done in the ER which showed left frontotemporal parietal occipital subdural chronic hematoma associate with mild effacement of the left lateral ventricle and midline shift to the right side of about 5 mm. Son states when patient was here in ER in January with fall and had a bruise on his left brow region, and CT seemed okay at that time. As per son patient also falls frequently at home. Son says patient is in the process of getting a PCP. Follows with urology() and heme-onc() with Jeromy Byrd. Patient admitted last month with acute bronchitis, enterorhinovirus infection.Seems last week was given IV fluids and IV potassium at the cancer center as per son Past medical history. As mentioned above. Past surgical history. Urological procedures. Back surgery. Appendectomy. Family significant for dementia. Diabetes. Heart disease. Social history. Obstructive history of tobacco abuse. Alcohol occasional. 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 Admission Exam Per Admitting Provider General- Not in distress Head- atraumatic Eyes- PERRL. ENT- oropharynx clear Neck- supple, no JVD. Lungs- clear to auscultation no wheezing or crackles. Heart- regular rhythm; no murmur, no gallop. Abdomen- normal bowel sounds, soft, nontender, no distension Extremities- Lower extremity edema present, no erythema seen. Neuro- alert, oriented x 2; PERRL, no facial palsy; no dysarthria; motor 5/5 bilaterally; no pronator drift, co ordination of movements normal, sensations intact Principal Diagnosis Altered mental status Chronic subdural hematoma Discharge Exam General- Agitated; trying to get out of bed. Not directable. Head- atraumatic Eyes- PERRL. ENT- oropharynx clear Neck- supple, no JVD. Lungs- clear to auscultation no wheezing or crackles. Heart- regular rhythm; no murmur, no gallop. Abdomen- normal bowel sounds, soft, nontender, no distension Extremities- Lower extremity edema present, no erythema seen. Neuro- Oriented to self. Grossly moves all extremities. Unable to follow commands Discharge Data Allergies Allergy/AdvReac Type Severity Reaction Status Date / Time No Known Allergies Allergy Verified 11/29/23 08:04 Consultations 02/28/24 06:03 ED Decision to Admit Stat 02/28/24 09:12 Consult Neurology Routine Consult Oncology Routine Ordered Studies 02/28/24 03:22 CT head/brain wo con Stat 02/28/24 09:12 MRI Brain [MR brain wo/w con] Urgent US venous doppler [facility] Urgent Hospital Course (1) Acute dehydration: (2) Subdural hematoma, chronic: Plan 73-year-old male with past medical history significant for PSVT status post ablation, valvular heart disease(mild MR, moderate TR) peripheral vascular disease, hypertension, hyperlipidemia, metastatic prostate cancer s/p radiation and as per son currently chemo is held for last 1 month and there is a plan to start new pills, BPH, GERD, chronic anemia, past tobacco abuse and recent diagnosis of C. difficile who lives at home with his was brought in by his son because of weakness, dehydration, poor p.o. intake and also not taking his pills. CT head on admission showed newly seen left frontal temporal parietal occipital subdural chronic hematoma associated with mild defacement of left lateral ventricle and midline shift to right of about 5 mm. Patient was evaluated by neurology; discussion was done with patient's and son by neurology -recent cognitive decline are likely due to SDH. Patient was recommended for transfer to [facility] for neurosurgery evaluation. Patient was unable to undergo MRI Brain due to agitation. Patient was given IM Haldol for agitation. Patient was accepted by Dr. Sahni from [facility]. Please note the above document was generated using voice recognition software. It may contain grammatical, syntax or spelling errors. Any formal questions or concerns about the content, text or information contained within the body of this dictation should be directly addressed to the provider for clarification Total Time Total Time Spent Total Time Spent (In Minutes): 67 Total Time Includes: Examination of the Patient, Discharge Planning, Medication Reconciliation, Communication With Other Providers and Other Discharge Plan Discharge Items Patient Disposition: Transfer Acute Care Hospital Reason For Visit: WEAKNESS, DEHYDRATION, C DIFF Discharge Diagnosis: Subdural hematoma Activity: Resume your previous activity Non-emergency contact: Primary Care Provider Call non-emergency contact if: you have any medication questions and your symptoms worsen Follow-up/Referrals: PCP,NO [Primary Care Provider] - Diet: Regular Addtl Attending Provider Instructions: Follow-up with your PCP after discharge from the hospital Pending Studies at Discharge: No Stand-Alone Forms: My [facility] Skilled Items Patient informed of condition?: No DNR: Yes Discharge Level of Care: Other Communicable Disease: No Discharge Prognosis: Stable Lines: Peripheral IV Urinary Catheter: Yes Medications and DC Order Prescriptions: Continued atorvastatin 40 mg tablet 40 mg PO HS sertraline 100 mg tablet 100 mg PO HS omeprazole 40 mg capsule,delayed release(DR/EC) 40 mg PO DAILY tamsulosin 0.4 mg capsule 0.4 mg PO HS hydroxyzine HCl 25 mg tablet 50 mg PO HS PRN (Reason: Anxiety) furosemide 20 mg tablet 20 mg PO DAILY propranolol 20 mg tablet 20 mg PO BID bupropion HCl 300 mg tablet extended release 24 hr 300 mg PO DAILY Xtandi 40 mg capsule 160 mg PO DAILY Breztri Aerosphere 160-9-4.8 mcg/actuation HFA aerosol inhaler 2 inh INHALATION BID oxycodone 5 mg tablet 5 mg PO QID PRN (Reason: Pain, Severe) multivitamin Tablet 1 tab PO DAILY ascorbic acid (vitamin C) [Vitamin C] 1,000 mg Tablet 1 g PO BID cyanocobalamin (vitamin B-12) 1,000 mcg Tablet 2,000 mcg PO DAILY fexofenadine 180 mg Tablet 180 mg PO DAILY PRN (Reason: Allergic Symptoms) calcium carbonate 600 mg calcium (1,500 mg) Tablet 600 mg PO DAILY potassium 99 mg Tablet 99 mg PO DAILY Lupron Depot (3 month) 22.5 mg Syringe Kit 22.5 mg IM UD Rx Instructions: q 3months magnesium 250 mg Tablet 250 mg PO DAILY terazosin 10 mg Capsule 10 mg PO DAILY cholecalciferol (vitamin D3) [Vitamin D3] 25 mcg (1,000 unit) Tablet,Chewable 25 mcg PO DAILY Discharge Orders: Discharge Order (Routine); Ordered 02/28/24 Ordered By: Willy Waters Admission Data Admit Date/Time: 02/28/24 06:51 Attending Provider: Osvaldo Dunbar Admit Provider: Osvaldo Dunbar Primary Care Provider: PCP,NO Other Providers: Osvaldo Dunbar; Deana De Jesus; Hernando Zuniga; Deana Buckner; Zach Matthews; Kane Neri; Long Rebollar; Dimas Ramirez; Ruma Don; Horace Cedeño; Jorge Champion; Bulmaro Brenner; Aftab Benton; Mona Graf; Marni Henao; Dimas Alejandro; Jackelin Oscar; Nicolasa Corea
--- NOTE | 2024-02-28 15:08 | Oncology Consultation ---
Date of Consultation February 28, 2024 Assessment & Plan (1) Subdural hematoma, chronic: (2) Prostate cancer: Plan -Will defer to neurosurgery/hospitalist team on further management of chronic subdural hematoma. Follow-up with me outpatient upon discharge from hospital. History of Present Illness Reason for Consultation: Prostate cancer Attending Physician: Osvaldo Dunbar MD History of Present Illness 73-year-old gentleman known to me with history of metastatic prostate cancer most recently on docetaxel which was suspended after 2 cycles on 02/05/2024 due to multiple hospitalizations. Admitted for dehydration, generalized weakness, diarrhea and cough. Of note, he was found to be C. difficile positive less than 2 weeks ago for which he was started on vancomycin. During my evaluation of patient today, he denied any symptoms. Seemed alert and oriented x 3. CT head obtained on presentation to the ER revealed newly seenleft klowput-pykjwcps-yypvutth-occipital subdural chronic hematoma associated with mild defacement of the left lateral ventricle and a midline shift to the right side of about 5 mm. Patient is being transferred to [facility] for possible neurosurgery evaluation. Allergies Allergy/AdvReac Type Severity Reaction Status Date / Time No Known Allergies Allergy Verified 11/29/23 08:04 Home Medications Medication Instructions Recorded Confirmed Type ascorbic acid (vitamin C) 1,000 mg 1 g PO BID 02/28/24 02/28/24 History tablet (Vitamin C) atorvastatin 40 mg tablet 40 mg PO HS 02/28/24 02/28/24 History budesonide 160 mcg-glycopyr 9 2 inh inhalation BID 02/28/24 02/28/24 History mcg-formot 4.8 mcg/actuation HFA inhaler (Breztri Aerosphere) bupropion HCl 300 mg 24 hr tablet, 300 mg PO DAILY 02/28/24 02/28/24 History extended release calcium carbonate 600 mg PO DAILY 02/28/24 02/28/24 History cholecalciferol (vitamin D3) 25 25 mcg PO DAILY 02/28/24 02/28/24 History mcg (1,000 unit) chewable tablet (Vitamin D3) cyanocobalamin (vitamin B-12) 2,000 mcg PO DAILY 02/28/24 02/28/24 History 1,000 mcg tablet enzalutamide 40 mg capsule (Xtandi) 160 mg PO DAILY 02/28/24 02/28/24 History fexofenadine 180 mg tablet 180 mg PO DAILY PRN Allergic 02/28/24 02/28/24 History Symptoms furosemide 20 mg tablet 20 mg PO DAILY 02/28/24 02/28/24 History hydroxyzine HCl 25 mg tablet 50 mg PO HS PRN Anxiety 02/28/24 02/28/24 History leuprolide (3 month) 22.5 mg (3 22.5 mg IM UD 02/28/24 02/28/24 History month) intramuscular syringe kit (Lupron Depot) magnesium 250 mg tablet 250 mg PO DAILY 02/28/24 02/28/24 History multivitamin 1 tab PO DAILY 02/28/24 02/28/24 History omeprazole 40 mg capsule,delayed 40 mg PO DAILY 02/28/24 02/28/24 History release oxycodone 5 mg tablet 5 mg PO QID PRN Pain, Severe 02/28/24 02/28/24 History potassium 99 mg tablet 99 mg PO DAILY 02/28/24 02/28/24 History propranolol 20 mg tablet 20 mg PO BID 02/28/24 02/28/24 History sertraline 100 mg tablet 100 mg PO HS 02/28/24 02/28/24 History tamsulosin 0.4 mg capsule 0.4 mg PO HS 02/28/24 02/28/24 History terazosin 10 mg capsule 10 mg PO DAILY 02/28/24 02/28/24 History Patient History Medical History GARVIN (dyspnea on exertion) Depression Hx of cardiac arrhythmia Concern for a.fib during preop evaluation prior to planned EGD/colonoscopy 06/2022 at [facility]. Subsequently seen by [facility] 07/05/22, low suspicion for a. fib > 14 equipment monitor phototypesetting recommended/noted no evidence of a. fib Occasional tremors COPD (chronic obstructive pulmonary disease) Occlusion of right internal carotid artery HTN (hypertension) Anxiety Acid reflux Seasonal allergies Kidney stone hx Poor historian Prostate cancer metastatic to bone 05/2022 prostate- oral denies any radiation/chemo Osteoarthritis Chronic back pain Spinal stenosis Globus sensation Pt denies Surgical History History of lumbar fusion H/O cardiac radiofrequency ablation For SVT on 12/11/22 - Follows [facility] H/O cystoscopy Cystoscopy, Left Ureteronephroscopy, Laser destruction, Basket Extraction of the Stone, Insertion Stent Catheter History of colonoscopy History of appendectomy Family History Sister Medical history unknown Pt had 8 sisters - 1 in MVA and 7 still living - none with cancer Mother , in her 80s Dementia Diabetes Myocardial infarction Hypertension Father , in his 80s Cancer Pt uncertain of type Brother No problems noted. Brother No problems noted. Brother No problems noted. Brother No problems noted. Brother No problems noted. Son No problems noted. Son No problems noted. Son No problems noted. Son No problems noted. Denies family history of Crohn's disease Colorectal cancer Ulcerative colitis Social History Smoking Status: Former smoker Tobacco Type: Cigarettes Age Started Using Tobacco: 19; Age Quit Using Tobacco: 55; Cigarettes Per Day: 2 PPD when smoking; Second Hand Exposure: No; Do You Dip or Chew Tobacco: No; Hx Alcohol Use: No Hx Substance Use: No Preferred Language: French Communication Ability: Effective Visual Impairment: No Limitations Hearing Ability: Normal Brush Stainer Required: No Beliefs That Will Affect Care: None marital status: Current Living Situation: Spouse current occupational status: retired 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 How many Children do You have: 4 Feels Safe at Home: Yes Diet: regular caffeine: Yes (1 "big cup" per day) during the past year weight has: remained stable Assistive Devices: Cane, Walker and Wheelchair Results & Data Vital Signs (Past 12 Hours) Vital Signs Pulse Pulse Resp BP BP Pulse Ox O2 Del Method 02/28/24 10:33 96 H 100 Nasal Cannula 02/28/24 10:30 121/71 02/28/24 10:27 87 31 H 100 Nasal Cannula 02/28/24 10:25 130/80 02/28/24 10:25 94 H 18 130/80 100 Nasal Cannula 02/28/24 09:39 87 28 H 02/28/24 09:30 101 H 18 02/28/24 09:01 129/80 02/28/24 09:00 104 H 20 02/28/24 08:45 98 H 18 134/78 96 Nasal Cannula 02/28/24 08:42 134/78 02/28/24 08:42 91 H 99 Nasal Cannula 02/28/24 08:36 95 H 100 Nasal Cannula 02/28/24 08:00 99 H 18 92 Nasal Cannula 02/28/24 08:00 127/65 02/28/24 07:55 137/80 02/28/24 06:31 100 H 02/28/24 06:00 98 H 20 124/85 94 Room Air 02/28/24 04:00 103 H 20 103/74 98 Room Air O2 Flow Rate 02/28/24 10:33 3.5 02/28/24 10:30 02/28/24 10:27 3.5 02/28/24 10:25 02/28/24 10:25 3 02/28/24 09:39 02/28/24 09:30 02/28/24 09:01 02/28/24 09:00 02/28/24 08:45 3.5 02/28/24 08:42 02/28/24 08:42 3.5 02/28/24 08:36 3.5 02/28/24 08:00 3.5 02/28/24 08:00 02/28/24 07:55 02/28/24 06:31 02/28/24 06:00 02/28/24 04:00
[2024-02-28] MEDS ORDERED: SERTRALINE HCL 100 MG TABLET PO SCH (21:00)
[2024-02-28] MEDS ORDERED: ATORVASTATIN 40 MG TAB PO SCH (21:00)
[2024-02-28] MEDS ORDERED: TAMSULOSIN HCL 0.4 MG CAP PO SCH (21:00)
--- NOTE | 2024-02-28 22:06 | Electrocardiogram Report ---
Test Reason : Blood Pressure : */* mmHG Vent. Rate : 96 BPM Atrial Rate : 96 BPM P-R Int : 132 ms QRS Dur : 80 ms QT Int : 348 ms P-R-T Axes : -21 -51 13 degrees QTcB Int : 439 ms Normal sinus rhythm Left anterior fascicular block Abnormal ECG When compared with ECG of 20-Jan-2024 18:17, No significant change was found Confirmed by William Hernandez ([id number] on 02/28/2024 10:05:54 PM Referred By: REFERRED SELF Confirmed By: William Hernandez
[2024-02-29] MEDS ORDERED: THIAMINE HCL 100 MG in SYRINGE 9 ML IV SCH (09:00)
== END 2024-02-28 15:19 | disposition short-term general hospital (02) | DRG 65 ==
LOC: ED 02:26 → EDINP 06:51 → INTOOBSV 06:51 → EDINP 09:13